=== PATIENT | female | born 1960 | race Caucasian/White ===

== ENCOUNTER 2017-05-26 16:36 | Observation (INO) | payer MEDICAID, MEDICARE, OTHER ==
[~2017-05-26] VITALS: Ht 157.5 cm; Wt 67.1 kg
[~2017-05-26 16:36] MED LIST: CORT1SOL LEFT EAR; FLUT50SP EACH NARE; LOSA50TA PO; MECL-62 PO; OMEP40CA2 PO; TRAM50TA PO; VENTAER INH; ZOFR4TAB PO
[2017-05-26 16:42] VITALS: BP 153/80; PULSE 76; RESP 16; TEMP 97.9; O2SAT 96
[2017-05-26] MEDS ORDERED: EPIP0.3I SQ (17:06)
[2017-05-26] MEDS ORDERED: ALBU0.63 NEB (17:06)
[2017-05-26] MEDS ORDERED: CYCL1TAB29 PO (17:06)
[2017-05-26] MEDS ORDERED: DICY20TA10 PO (17:06)
[2017-05-26 17:38] LABS: AUTOMATED NEUTROPHIL # 5.3 TH/MM3 (1.8-7.7); BASOPHIL # 0.3 TH/MM3 (0-0.2); BASOPHIL % 3.5 % (0.0-2.0); EOSINOPHIL # 0.1 TH/MM3 (0-0.4); EOSINOPHIL % 1.1 % (0.0-4.0); HEMATOCRIT 37.2 % (35.0-46.0); HEMO FLAGS DIFF FINAL; LYMPH % 20.6 % (9.0-44.0); LYMPHOCYTE # 1.7 TH/MM3 (1.0-4.8); MEAN CELL VOLUME 90.9 FL (80.0-100.0); MEAN CORPUSCULAR HEMOGLOBIN 30.9 PG (27.0-34.0); NEUT % 66.8 % (16.0-70.0); PLATELET COUNT 152 TH/MM3 (150-450); RED BLOOD COUNT 4.09 MIL/MM3 (4.00-5.30); RED CELL DISTRIBUTION WIDTH 12.7 % (11.6-17.2); WHITE BLOOD COUNT 8.1 TH/MM3 (4.0-11.0)
[2017-05-26 17:47] LABS: CHLORIDE 107 MEQ/L (98-107); POTASSIUM 3.7 MEQ/L (3.5-5.1); SODIUM (NA) 140 MEQ/L (136-145)
[2017-05-26 17:51] LABS: ANION GAP 9 MEQ/L (5-15); BICARBONATE 23.7 MEQ/L (21.0-32.0); BLOOD UREA NITROGEN 9 MG/DL (7-18)
[2017-05-26 17:52] LABS: PROTHROMBIN TIME - PATIENT 10.7 SEC (9.8-11.6)
--- NOTE | 2017-05-26 17:52 | RADRPT ---
EXAM DATE/TIME: 05/26/2017 17:35 [facility] COMPARISON: No previous studies available for comparison. INDICATIONS : Cephalgia, right eye vision loss and bilateral orbital swelling. RADIATION DOSE: 59.57 CTDIvol (mGy) MEDICAL HISTORY : Multple sclerosis. SURGICAL HISTORY : None. ENCOUNTER: Initial ACUITY: 2 weeks PAIN SCALE: 8/10 LOCATION: cranial TECHNIQUE: Multiple contiguous axial images were obtained of the head. Using automated exposure control and adj ustment of the mA and/or kV according to patient size, radiation dose was kept as low as reasonably a chievable to obtain optimal diagnostic quality images. DICOM format image data is available electro nically for review and comparison. FINDINGS: CEREBRUM: The ventricles are normal for age. No evidence of midline shift, mass lesion, hemorrhage or acute in farction. No extra-axial fluid collections are seen. POSTERIOR FOSSA: The cerebellum and brainstem are intact. The 4th ventricle is midline. The cerebellopontine angle i s unremarkable. EXTRACRANIAL: The visualized portion of the orbits is intact. SKULL: The calvaria is intact. No evidence of skull fracture. CONCLUSION: Negative for acute process. Sean Richard MD FACR on May 26, 2017 at 17:50 Board Certified Radiologist. This report was verified electronically.
[2017-05-26 17:54] LABS: ALT (GPT) 28 U/L (10-53); AST (GOT) 20 U/L (15-37); GLOMERULAR FILTRATION RATE 74 ML/MIN (>89)
[2017-05-26 17:55] LABS: TOTAL BILIRUBIN ADULT 0.4 MG/DL (0.2-1.0)
[2017-05-26 17:57] LABS: ALKALINE PHOSPHATASE 73 U/L (45-117)
[2017-05-26] MEDS ORDERED: ACETAMINOPHEN 325 MG TAB PO ONE ×2 (18:15→23:00)
[2017-05-26] MEDS ORDERED: DIAZEPAM 5 MG TAB PO ONE (18:15)
[2017-05-26] MEDS ORDERED: ASPIRIN 81 MG CHEW TAB CHEW ONE (18:30)
[2017-05-26] MEDS ORDERED: PROPARACAINE HCL 0.5% OPHT SOLN 15 ML BTL EACH EYE ONE (18:30)
--- NOTE | 2017-05-26 19:17 | PD ---
HPI Chief Complaint: Eye Problems/Injury Time Seen by Provider: 17:12 Travel History International Travel<30 days: No Contact w/Intl Traveler<30days: No Traveled to known affect area: No History of Present Illness HPI Patient is a 56 year old female who comes in complaining of pain in her head and intermittent blindness. She says that she has had issues with swelling around her eye for the past week. She was seen in urgent care and given a prescription for tobramycin drops for presumed infection. She says that is improved, but today she was having flashes of white blindness over her eyes. She says these last for about 20 minutes. The last one was about an hour and a half prior to arrival. She also complains of severe pain to the top of her head. She denies nausea or vomiting. She does have history of MS, but says that she has not had any issues with her for a while. She does not take any medications for it currently. She denies fever or chills. She does feel very worn out. 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) Cardiovascular Problems: Yes (MITRAL VALVE PROLAPSE) High Cholesterol: Yes (BORDERLINE) Chemotherapy: No Chest Pain: No Congestive Heart Failure: No COPD: Yes Cerebrovascular Accident: No Diminished Hearing: Yes (BL hearing aids) Endocrine: No Gastrointestinal Disorders: Yes (PERF BOWEL HX) GERD: Yes Genitourinary: Yes (ENDOMETRIOSIS) Hepatitis: No Hiatal Hernia: No Herniated Disk: Yes Hypertension: Yes Immune Disorder: Yes Implanted Vascular Access Dvce: Yes Musculoskeletal: Yes (R SHOULDER ROTARY CUP SX 12/21) Neurologic: Yes (MS) Psychiatric: Yes Reproductive: Yes (HX SEVERE ENDOMETRIOSIS, SCAR TISSUE REMOVAL) Respiratory: Yes Immunizations Current: Yes Radiation Therapy: No Seizures: No Thyroid Disease: No Ulcer: Yes ?: Not Menopausal: Yes : 3 Para: 2 Miscarriage: 1 Dilation and Curettage (D&C): Yes Tubal Ligation: Yes Past Surgical History Abdominal Surgery: Yes (COLONOSCOPY, ENDOSCOPY 03/29; BOWEL RESECTION ) AICD: No Appendectomy: Yes Body Medical Devices: BILATERAL BREAST AUGMENTATION 03/22 Cardiac Surgery: No Section: Yes Cholecystectomy: Yes Ear Surgery: No Endocrine Surgery: No Eye Surgery: No Genitourinary Surgery: Yes (HX BLADDER CLIPPED SEVERAL TIMES) Gynecologic Surgery: Yes (HX SEVERE ENDOMETRIOSIS, SCAR TISSUE REMOVAL) Hysterectomy: Yes Joint Replacement: No Neurologic Surgery: Yes (04/17/14 C3-4 ACDF) Oral Surgery: Yes (4 BRIDGES, CAPS, ROOT CANALS) Pacemaker: No Thoracic Surgery: Yes (BILATERAL BREAST AUGMENTATION 03/22) Other Surgery: Yes (04/17/14 C3-4 ACDF) Social History Alcohol Use: Yes (2-3 glasses wine 4-5 nights/week) Tobacco Use: No Substance Use: No Allergies-Medications (Allergen,Severity, Reaction): Coded Allergies: Influenza Virus Vaccines (Unverified Allergy, Severe, Anaphylaxis, ) Sulfa (Sulfonamide Antibiotics) (Unverified Allergy, Severe, DYSPNEA, BRADYCARDIA, 05/26/17) avocado (Unverified Allergy, Severe, Swelling, 05/26/17) corn (Unverified Allergy, Severe, Shortness of Breath, 05/26/17) erythromycin base (Unverified Allergy, Severe, Swelling, 05/26/17) kiwi (Unverified Allergy, Severe, Swelling, 05/26/17) methylprednisolone (Unverified Allergy, Severe, ANAPHYLAXIS, 05/26/17) shellfish derived (Unverified Allergy, Severe, DYSPNEA, MITRAL VALVE PROLAPSE, 05/26/17) sulfur dioxide (Unverified Allergy, Severe, Dizziness, 05/26/17) wheat (Unverified Allergy, Severe, Swelling, 05/26/17) oyster extract (Unverified Allergy, Intermediate, Anaphylaxis, 05/26/17) Fish Containing Products (Unverified Adverse Reaction, Severe, Swelling, 05/26/17) iodine (Unverified Adverse Reaction, Severe, Rash, 05/26/17) jaci (Unverified Adverse Reaction, Severe, Swelling, 05/26/17) monosodium glutamate (Unverified Adverse Reaction, Severe, Swelling, 05/26) potassium iodide (Unverified Adverse Reaction, Severe, Rash, 05/26/17) povidone-iodine (Unverified Adverse Reaction, Severe, Rash, 05/26/17) sodium iodide (Unverified Adverse Reaction, Severe, Rash, 05/26/17) sodium iodide (Unverified Adverse Reaction, Severe, Rash, 05/26/17) Uncoded Allergies: TEQUILA (Allergy, Intermediate, Shortness of Breath, 09/29/13) ALOE (Adverse Reaction, Severe, Rash, 09/29/13) PEPPERS (Adverse Reaction, Severe, STOMACH ISSUES, 09/29/13) POWDER GLOVES (Adverse Reaction, Severe, Rash, 09/29/13) Reported Meds & Prescriptions Reported Meds & Active Scripts Active Reported Albuterol Neb (Albuterol Sulfate) 0.63 Mg/3 Ml Neb 0.63 Mg NEB Q4HR NEB PRN Epipen 2-Robert Inj (Epinephrine) 0.3 Mg/0.3 Ml Pfpen 0.3 Mg SQ ONCE PRN Dicyclomine (Dicyclomine HCl) 20 Mg Tab 20 Mg PO QID PRN Flexeril (Cyclobenzaprine HCl) 10 Mg Tab 10 Mg PO TID PRN Tramadol (Tramadol HCl) 50 Mg Tab 50 Mg PO Q6H PRN Fluticasone Nasal [place] 50 Mcg/Act Naspr 50 Mcg EACH NARE BID 50 mcg/spray Omeprazole 40 Mg Cap 40 Mg PO DAILY Losartan (Losartan Potassium) 50 Mg Tab 50 Mg PO DAILY Ventolin Hfa 18 GM Inh (Albuterol Sulfate) 90 Mcg/Act Aer 2 Puff INH Q4-6H PRN Review of Systems Except as stated in HPI: all other systems reviewed are Neg General / Constitutional: No: Fever, Chills Eyes: Positive: Blindness, No: Pain HENT: Positive: Headaches, No: Lightheadedness Cardiovascular: No: Chest Pain or Discomfort Respiratory: No: Shortness of Breath Gastrointestinal: No: Nausea, Vomiting Genitourinary: No: Dysuria Musculoskeletal: No: Myalgias, Edema Skin: No Rash, No Change in Pigmentation Neurologic: Positive: Weakness, No: Dizziness Physical Exam Narrative GENERAL: Awake and alert, in no acute distress. SKIN: Focused skin assessment warm/dry. HEAD: Atraumatic. Normocephalic. EYES: Pupils equal and round and reactive. No scleral icterus. Extraocular movements intact. ENT: No nasal bleeding or discharge. Mucous membranes pink and moist. NECK: Trachea midline. No JVD. CARDIOVASCULAR: Regular rate and rhythm. No murmur appreciated. RESPIRATORY: No accessory muscle use. Clear to auscultation. Breath sounds equal bilaterally. GASTROINTESTINAL: Abdomen soft, non-tender, nondistended. MUSCULOSKELETAL: No obvious deformities. No clubbing. No cyanosis. No edema. NEUROLOGICAL: Awake and alert. No obvious cranial nerve deficits. Motor grossly within normal limits. Normal speech. PSYCHIATRIC: Appropriate mood and affect; insight and judgment normal. Data Data Last Documented VS Vital Signs Date Time Temp Pulse Resp B/P (MAP) Pulse Ox O2 Delivery O2 Flow Rate FiO2 05/26/17 16:42 97.9 76 16 153/80 (104) 96 Orders Orders Iv Access Insert/Monitor (05/26/17 17:21) Complete Blood Count With Diff (05/26/17 17:21) Comprehensive Metabolic Panel (05/26/17 17:21) Act Partial Throm Time (Ptt) (05/26/17 17:21) Prothrombin Time / Inr (Pt) (05/26/17 17:21) Ct Brain W/O Iv Contrast(Rout) (05/26/17 ) Mri Brain W&W/O Contrast (05/26/17 ) Acetaminophen (Tylenol) (05/26/17 18:15) Diazepam (Valium) (05/26/17 18:15) Westergren Sedimentation Rate (05/26/17 18:19) Drug Screen, Random Urine (05/26/17 18:19) Mra Carotids W Contrast (05/26/17 ) Consult Neurology (05/26/17 ) Aspirin Chew (Aspirin Chew) (05/26/17 18:30) Proparacaine 0.5% Opth Soln (Alcaine 0.5 (05/26/17 18:30) (Hub Use Only)Inp Phy Cons/Ref (05/26/17 ) Admit Order (Ed Use Only) (05/26/17 ) Mrv Brain W/O Contrast (05/26/17 ) Labs Laboratory Tests Test 05/26/17 17:30 05/26/17 18:40 White Blood Count 8.1 TH/MM3 Red Blood Count 4.09 MIL/MM3 Hemoglobin 12.6 GM/DL Hematocrit 37.2 % Mean Corpuscular Volume 90.9 FL Mean Corpuscular Hemoglobin 30.9 PG Mean Corpuscular Hemoglobin Concent 34.0 % Red Cell Distribution Width 12.7 % Platelet Count 152 TH/MM3 Mean Platelet Volume 9.3 FL Neutrophils (%) (Auto) 66.8 % Lymphocytes (%) (Auto) 20.6 % Monocytes (%) (Auto) 8.0 % Eosinophils (%) (Auto) 1.1 % Basophils (%) (Auto) 3.5 % Neutrophils # (Auto) 5.3 TH/MM3 Lymphocytes # (Auto) 1.7 TH/MM3 Monocytes # (Auto) 0.7 TH/MM3 Eosinophils # (Auto) 0.1 TH/MM3 Basophils # (Auto) 0.3 TH/MM3 CBC Comment DIFF FINAL Differential Comment Erythrocyte Sedimentation Rate 5 mm/hr Prothrombin Time 10.7 SEC Prothromb Time International Ratio 1.0 RATIO Activated Partial Thromboplast Time 25.0 SEC Blood Urea Nitrogen 9 MG/DL Creatinine 0.80 MG/DL Random Glucose 107 MG/DL Total Protein 7.2 GM/DL Albumin 4.0 GM/DL Calcium Level 8.4 MG/DL Alkaline Phosphatase 73 U/L Aspartate Amino Transf (AST/SGOT) 20 U/L Alanine Aminotransferase (ALT/SGPT) 28 U/L Total Bilirubin 0.4 MG/DL Sodium Level 140 MEQ/L Potassium Level 3.7 MEQ/L Chloride Level 107 MEQ/L Carbon Dioxide Level 23.7 MEQ/L Anion Gap 9 MEQ/L Estimat Glomerular Filtration Rate 74 ML/MIN Urine Opiates Screen NEG Urine Barbiturates Screen NEG Urine Amphetamines Screen NEG Urine Benzodiazepines Screen NEG Urine Cocaine Screen NEG Urine Cannabinoids Screen NEG MDM Medical Decision Making Medical Screen Exam Complete: Yes Emergency Medical Condition: Yes Medical Record Reviewed: Yes Differential Diagnosis CVA versus cavernous sinus thrombosis versus electrolyte abnormality versus MS flare Narrative Course Patient is a 56-year-old female comes in complaining of intermittent blindness. Exam shows no acute abnormalities. Vision is 20/20 in 20/25. Pressure is 7 in the right eyes and 4 in the left eye. IV status, labs sent. CT brain performed shows no acute abnormalities. Dr. Cooper of neurology who suggests MRI and MRV MRA. These were ordered. He also suggests an aspirin, which is also given to the patient. He suggests admission for further workup. She will be given Tylenol and Valium for her headache as well as for issues with the anxiety and MRI. Diagnosis Primary Impression: Neurological symptoms Additional Impression: Blindness Admitting Information Admitting Physician Requests: Admit Condition: Stable Cari Carty MD May 26, 2017 19:17
[2017-05-26 19:24] VITALS: BP 149/92; PULSE 58; RESP 14; O2SAT 97
[2017-05-26] MEDS ORDERED: GADODIAMIDE PF 287 MG/ML 20 ML VIAL (for RAD MRI) IVCONTRAST ONE (19:24)
[2017-05-26 20:00] VITALS: BP 154/80; PULSE 65; RESP 20; TEMP 96.5; O2SAT 96
[2017-05-26 20:13] VITALS: BP 154/80; PULSE 65; RESP 20; TEMP 96.5; O2SAT 96
[2017-05-26] MEDS ORDERED: NALOXONE HCL 0.4 MG/ML AMP IV PUSH PRN (20:15)
[2017-05-26] MEDS ORDERED: SODIUM CHLORIDE 0.9% FLUSH 10 ML FLUSH IV FLUSH PRN (20:15)
--- NOTE | 2017-05-26 21:07 | RADRPT ---
EXAM DATE/TIME: 05/26/2017 20:20 [facility] COMPARISON: No previous studies available for comparison. INDICATIONS : Right eye vision loss. CONTRAST: 20 cc Omniscan (gadodiamide) IV MEDICAL HISTORY : Multiple sclerosis. Chronic obstructive pulmonary disease. Arthritis. SURGICAL HISTORY : Tubal ligation. Fusion, cervical. Fusion, lumbar. ENCOUNTER: Initial ACUITY: 2 weeks PAIN SCORE: 2/10 LOCATION: cranial TECHNIQUE: Multiplanar, multisequence MRI of the brain was performed both prior to and following the administrat ion of paramagnetic contrast. FINDINGS: CEREBRUM: The ventricles are normal for age. No evidence of midline shift, mass lesion, hemorrhage or acute in farction. No extraaxial fluid collections are seen. The pituitary gland and suprasellar cistern are normal in configuration. WHITE MATTER: Several tiny high signal spots are noted in the white matter tracts bilaterally. POSTERIOR FOSSA: The cerebellum and brainstem are intact. The 4th ventricle is midline. The cerebellopontine angle is unremarkable. The cerebellar tonsils are normal in position. DIFFUSION IMAGING: No focal areas of restricted diffusion are seen. No evidence of acute infarction. EXTRACRANIAL: The visualized portions of the orbits and paranasal sinuses are unremarkable. POST-CONTRAST: No abnormal areas of parenchymal or dural enhancement. No evidence of blood-brain barrier breakdown. CONCLUSION: 1. Several high signal spots are noted in the white matter tracts bilaterally. This can be seen with ischemic demyelinization. However, any demyelinating process can present with this finding. Therefore , this needs to be correlated with patient's physical and clinical exam if MS is a consideration. A f ollow up MRI of the brain could be performed in 6 months to check stability. Mike Moran MD on May 26, 2017 at 21:02 Board Certified Radiologist. This report was verified electronically.
--- NOTE | 2017-05-26 21:08 | RADRPT ---
EXAM DATE/TIME: 05/26/2017 20:20 [facility] COMPARISON: No previous studies available for comparison. INDICATIONS : Vision loss right eye. MEDICAL HISTORY : Arthritis. Chronic obstructive pulmonary disease. Multiple sclerosis. SURGICAL HISTORY : Fusion, lumbar. Fusion, cervical. ENCOUNTER: Initial ACUITY: 2 weeks PAIN SCORE: 2/10 LOCATION: cranial Please note a normal MRA of the brain does not entirely exclude the possibility of a small aneurysm, nor the possibility of distal intracranial vessel disease. TECHNIQUE: MR venography of the brain was performed without contrast with multiplanar and 3D reconstructions. FINDINGS: There is good visualization of the venous system. There is no evidence of thrombus or obstruction. CONCLUSION: Unremarkable exam. Mike Moran MD on May 26, 2017 at 21:06 Board Certified Radiologist. This report was verified electronically.
[2017-05-26 21:09] VITALS: BP 150/86; TEMP 97.8
--- NOTE | 2017-05-26 21:16 | RADRPT ---
EXAM DATE/TIME: 05/26/2017 20:20 [facility] COMPARISON: No previous studies available for comparison. INDICATIONS : Right eye vision loss. CONTRAST: 20 cc Omniscan (gadodiamide) IV MEDICAL HISTORY : Chronic obstructive pulmonary disease. Multiple sclerosis. Arthritis. SURGICAL HISTORY : Tubal ligation. Discectomy, cervical. Discectomy, lumbar. ENCOUNTER: Initial ACUITY: 2 weeks PAIN SCORE: 2/10 LOCATION: cranial Percent stenosis is calculated using the diameter of the stenotic region over the diameter of the nor mal distal internal carotid artery. TECHNIQUE: Bolus infused MRA of the extracranial circulation was performed using a neurovascular coil. Post pro cessing was performed including rotating subvolume maximum intensity projections of each carotid love ry, rotating full volume maximum intensity projections of both carotid arteries, sagittal and coronal sliding thin slab reformations of each carotid artery, and left oblique sliding thin slab reformatio n through the aortic arch to include the origin of the arch branch vessels. FINDINGS: AORTIC ARCH: There is a three vessel origin of the great vessels from the aorta. No evidence of ostial narrowing. RIGHT CAROTID: The common carotid artery is intact. The carotid bulb has a normal configuration without ulceration or narrowing. The internal carotid artery lumen is smooth without stenosis. The external carotid ar carrie is intact. There is tortuosity of the internal carotid artery. LEFT CAROTID: The common carotid artery is intact. The carotid bulb has a normal configuration without ulceration or narrowing. The internal carotid artery lumen is smooth without stenosis. The external carotid ar carrie is intact. There is tortuosity of the internal carotid artery. VERTEBRALS: There is a left dominant vertebral artery. There is a small patent right vertebral artery. CONCLUSION: 1. There is tortuosity of both internal carotid arteries. 2. Otherwise, unremarkable exam for patient's age. Mike Moran MD on May 26, 2017 at 21:13 Board Certified Radiologist. This report was verified electronically.
[2017-05-26 21:40] VITALS: PULSE 54
[2017-05-26] MEDS: SODIUM CHLORIDE 0.9% FLUSH 10 ML FLUSH IV FLUSH SCH (23:41)
[2017-05-27] VITALS (12 sets, daily range): BP systolic 126–193; BP diastolic 80–99; PULSE 53–88; RESP 18–24; TEMP 96.5–98.9; O2SAT 94–98
[2017-05-27 06:21] LABS: AUTOMATED NEUTROPHIL # 2.6 TH/MM3 (1.8-7.7); BASOPHIL # 0.1 TH/MM3 (0-0.2); BASOPHIL % 1.3 % (0.0-2.0); EOSINOPHIL # 0.1 TH/MM3 (0-0.4); EOSINOPHIL % 1.9 % (0.0-4.0); HEMO FLAGS DIFF FINAL; LYMPH % 37.6 % (9.0-44.0); LYMPHOCYTE # 1.9 TH/MM3 (1.0-4.8); MEAN CORPUSCULAR HEMOGLOBIN 30.8 PG (27.0-34.0); MEAN CORPUSCULAR HGB CONC 33.5 % (32.0-36.0); NEUT % 51.2 % (16.0-70.0); PLATELET COUNT 138 TH/MM3 (150-450); RED BLOOD COUNT 4.03 MIL/MM3 (4.00-5.30); WHITE BLOOD COUNT 5.1 TH/MM3 (4.0-11.0)
[2017-05-27 06:34] LABS: POTASSIUM 3.5 MEQ/L (3.5-5.1)
[2017-05-27] MEDS: SODIUM CHLORIDE 0.9% FLUSH 10 ML FLUSH IV FLUSH SCH ×2 (09:30→20:56)
[2017-05-27] MEDS ORDERED: predniSONE 20 MG TAB PO ONE (11:30)
--- NOTE | 2017-05-27 11:35 | HHI.HP ---
[facility] Primary Care Physician Non-Staff Admission Diagnosis episodic blindness, neurologic symptoms Diagnoses: Travel History International Travel<30 Days: No Contact w/Intl Traveler <30 Da: No Traveled to Known Affected Are: No History of Present Illness Mrs. Spain is a 56 year-old female. She has a history of multiple sclerosis. Recently she's had an exacerbation. She may have also had angioedema. She describes a right-sided headache and recurrent episodes of facial swelling more specifically around her orbits which of inhibited her ability to see. She's had this recently. She had been recovering and noticed statistically different change in her ability to see yesterday which prompted her to come into the emergency department. This episode of transient blindness was not related to eye swelling/mechanical obstruction. MRI of the brain shows areas of demyelinization, which are consistent with her multiple sclerosis but determination of an acute CVA in the setting of his difficult. Her vision has returned to his baseline status at this point. Overall she still has malaise. She has been on losartan which could be a cause of her angioedema. However, she also has sclerosis and autoimmunity could affect an episode of angioedema also. No other complaints when seen. No reports of unilateral weakness. She follows in outpatient with Dr. Workman is a neurologist. Review of Systems Constitutional: DENIES: Fatigue, Fever, Dizziness Eyes: COMPLAINS OF: Blurred vision, Vision loss Ears, nose, mouth, throat: DENIES: Tinnitus, Hearing loss, Vertigo Respiratory: DENIES: Apneas, Cough, Wheezing Cardiovascular: DENIES: Chest pain, Palpitations, Syncope Gastrointestinal: DENIES: Abdominal pain, Black stools, Bloody stools Musculoskeletal: DENIES: Joint pain, Muscle aches, Stiffness Integumentary: DENIES: Abnormal pigmentation, Pruritus, Rash, Nail changes Hematologic/lymphatic: DENIES: Bruising, Lymphadenopathy Immunologic/allergic: DENIES: Eczema, Urticaria Neurologic: COMPLAINS OF: Headache, DENIES: Abnormal gait, Localized weakness, Paresthesias Psychiatric: DENIES: Anxiety, Confusion, Hallucinations Past Family Social History Past Medical History Past Medical History Multiple history of gastroenteritis Asthma, COPD Multiple sclerosis? Arthritis Mitral valve prolapse Breast tumors with cysts Dyslipidemia Herniated disc Endometriosis Past Surgical History Past Surgical History Colonoscopy Cholecystectomy Hysterectomy Bowel resection Breast augmentation section Cholecystectomy Appendectomy Urinary bladder clipping Reported Medications Reported Meds & Active Scripts Active Reported Albuterol Neb (Albuterol Sulfate) 0.63 Mg/3 Ml Neb 0.63 Mg NEB Q4HR NEB PRN Epipen 2-Robert Inj (Epinephrine) 0.3 Mg/0.3 Ml Pfpen 0.3 Mg SQ ONCE PRN Dicyclomine (Dicyclomine HCl) 20 Mg Tab 20 Mg PO QID PRN Flexeril (Cyclobenzaprine HCl) 10 Mg Tab 10 Mg PO TID PRN Tramadol (Tramadol HCl) 50 Mg Tab 50 Mg PO Q6H PRN Fluticasone Nasal [place] 50 Mcg/Act Naspr 50 Mcg EACH NARE BID 50 mcg/spray Omeprazole 40 Mg Cap 40 Mg PO DAILY Losartan (Losartan Potassium) 50 Mg Tab 50 Mg PO DAILY Ventolin Hfa 18 GM Inh (Albuterol Sulfate) 90 Mcg/Act Aer 2 Puff INH Q4-6H PRN Allergies: Coded Allergies: Influenza Virus Vaccines (Unverified Allergy, Severe, Anaphylaxis, ) Sulfa (Sulfonamide Antibiotics) (Unverified Allergy, Severe, DYSPNEA, BRADYCARDIA, 05/26/17) avocado (Unverified Allergy, Severe, Swelling, 05/26/17) corn (Unverified Allergy, Severe, Shortness of Breath, 05/26/17) erythromycin base (Unverified Allergy, Severe, Swelling, 05/26/17) kiwi (Unverified Allergy, Severe, Swelling, 05/26/17) methylprednisolone (Unverified Allergy, Severe, ANAPHYLAXIS, 05/26/17) shellfish derived (Unverified Allergy, Severe, DYSPNEA, MITRAL VALVE PROLAPSE, 05/26/17) sulfur dioxide (Unverified Allergy, Severe, Dizziness, 05/26/17) wheat (Unverified Allergy, Severe, Swelling, 05/26/17) oyster extract (Unverified Allergy, Intermediate, Anaphylaxis, 05/26/17) Fish Containing Products (Unverified Adverse Reaction, Severe, Swelling, 05/26/17) iodine (Unverified Adverse Reaction, Severe, Rash, 05/26/17) jaci (Unverified Adverse Reaction, Severe, Swelling, 05/26/17) monosodium glutamate (Unverified Adverse Reaction, Severe, Swelling, 05/26) potassium iodide (Unverified Adverse Reaction, Severe, Rash, 05/26/17) povidone-iodine (Unverified Adverse Reaction, Severe, Rash, 05/26/17) sodium iodide (Unverified Adverse Reaction, Severe, Rash, 05/26/17) sodium iodide (Unverified Adverse Reaction, Severe, Rash, 05/26/17) Uncoded Allergies: TEQUILA (Allergy, Intermediate, Shortness of Breath, 09/29/13) ALOE (Adverse Reaction, Severe, Rash, 09/29/13) PEPPERS (Adverse Reaction, Severe, STOMACH ISSUES, 09/29/13) POWDER GLOVES (Adverse Reaction, Severe, Rash, 09/29/13) Active Ordered Medications Administered Medications Medications (Trade) Dose Ordered Sig/Michael Route PRN Reason Start Time Stop Time Status Last Admin Dose Admin Sodium Chloride (NS Flush) 2 ml BID IV FLUSH 05/26/17 21:00 05/27/17 09:30 Family History Stomach cancer and family Social History Past history of smoking, quit 10 years ago Occasional alcohol use No illicit drug abuse Physical Exam Vital Signs Vital Signs Date Time Temp Pulse Resp B/P (MAP) Pulse Ox O2 Delivery O2 Flow Rate FiO2 05/27/17 08:13 96.7 59 20 139/81 (100) 98 05/27/17 08:00 53 05/27/17 07:50 96.7 59 20 139/81 (100) 98 05/27/17 04:00 96.7 60 18 126/82 (97) 98 05/27/17 00:13 96.5 60 20 133/80 (97) 98 05/27/17 00:00 96.5 60 20 133/80 (97) 98 05/26/17 21:40 54 05/26/17 21:09 97.8 56 16 150/86 (107) 97 05/26/17 20:13 96.5 65 20 154/80 (104) 96 05/26/17 20:00 96.5 65 20 154/80 (104) 96 05/26/17 19:25 14 05/26/17 19:24 58 14 149/92 (111) 97 Room Air 05/26/17 16:42 97.9 76 16 153/80 (104) 96 Physical Exam GENERAL: NAD, A&Ox3 HEAD: Normocephalic. Recovering facial swelling. NECK: Supple, trachea midline. No lymphadenopathy. EYES: No scleral icterus. No injection or drainage. No signs of swelling of the eye itself. CARDIOVASCULAR: Regular rate and rhythm without murmurs, gallops, or rubs. RESPIRATORY: Breath sounds equal bilaterally. No accessory muscle use. GASTROINTESTINAL: Abdomen soft, non-tender, nondistended. MUSCULOSKELETAL: No cyanosis, or edema. SKIN: Warm and dry. NEURO: No focal neurological deficitis. Laboratory Laboratory Tests Test 05/26/17 17:30 05/26/17 18:40 05/27/17 04:40 White Blood Count 8.1 5.1 Red Blood Count 4.09 4.03 Hemoglobin 12.6 12.4 Hematocrit 37.2 37.0 Mean Corpuscular Volume 90.9 92.0 Mean Corpuscular Hemoglobin 30.9 30.8 Mean Corpuscular Hemoglobin Concent 34.0 33.5 Red Cell Distribution Width 12.7 13.0 Platelet Count 152 138 Mean Platelet Volume 9.3 9.9 Neutrophils (%) (Auto) 66.8 51.2 Lymphocytes (%) (Auto) 20.6 37.6 Monocytes (%) (Auto) 8.0 8.0 Eosinophils (%) (Auto) 1.1 1.9 Basophils (%) (Auto) 3.5 1.3 Neutrophils # (Auto) 5.3 2.6 Lymphocytes # (Auto) 1.7 1.9 Monocytes # (Auto) 0.7 0.4 Eosinophils # (Auto) 0.1 0.1 Basophils # (Auto) 0.3 0.1 CBC Comment DIFF FINAL DIFF FINAL Differential Comment Erythrocyte Sedimentation Rate 5 Prothrombin Time 10.7 Prothromb Time International Ratio 1.0 Activated Partial Thromboplast Time 25.0 Blood Urea Nitrogen 9 8 Creatinine 0.80 0.62 Random Glucose 107 96 Total Protein 7.2 Albumin 4.0 Calcium Level 8.4 8.2 Alkaline Phosphatase 73 Aspartate Amino Transf (AST/SGOT) 20 Alanine Aminotransferase (ALT/SGPT) 28 Total Bilirubin 0.4 Sodium Level 140 141 Potassium Level 3.7 3.5 Chloride Level 107 108 Carbon Dioxide Level 23.7 26.0 Anion Gap 9 7 Estimat Glomerular Filtration Rate 74 99 Urine Opiates Screen NEG Urine Barbiturates Screen NEG Urine Amphetamines Screen NEG Urine Benzodiazepines Screen NEG Urine Cocaine Screen NEG Urine Cannabinoids Screen NEG Result Diagram: 05/27/1743905/27/17439 Caprini VTE Risk Assessment Caprini VTE Risk Assessment: No/Low Risk (score <= 1) Caprini Risk Assessment Model Point Value = 1 Point Value = 2 Point Value = 3 Point Value = 5 Age 41-60 Minor surgery BMI > 25 kg/m2 Swollen legs Varicose veins or History of unexplained or recurrent spontaneous Oral contraceptives or hormone replacement Sepsis (< 1 month) Serious lung disease, including pneumonia (< 1 month) Abnormal pulmonary function Acute myocardial infarction Congestive heart failure (< 1 month) History of inflammatory bowel disease Medical patient at bed rest Age 61-74 Arthroscopic surgery Major open surgery (> 45 min) Laparoscopic surgery (> 45 min) Malignancy Confined to bed (> 72 hours) Immobilizing plaster cast Central venous access Age >= 75 History of VTE Family history of VTE Factor V Leiden Prothrombin [id number] Lupus anticoagulant Anticardiolipin antibodies Elevated serum homocysteine Heparin-induced thrombocytopenia Other congenital or acquired thrombophilia Stroke (< 1 month) Elective arthroplasty Hip, pelvis, or leg fracture Acute spinal cord injury (< 1 month) Prophylaxis Regimen Total Risk Factor Score Risk Level Prophylaxis Regimen 0-1 Low Early ambulation 2 Moderate Order ONE of the following: *Sequential Compression Device (SCD) *Heparin 5000 units SQ BID 3-4 Higher Order ONE of the following medications: *Heparin 5000 units SQ TID *Enoxaparin/Lovenox 40 mg SQ daily (WT < 150 kg, CrCl > 30 mL/min) *Enoxaparin/Lovenox 30 mg SQ daily (WT < 150 kg, CrCl > 10-29 mL/min) *Enoxaparin/Lovenox 30 mg SQ BID (WT < 150 kg, CrCl > 30 mL/min) AND/OR *Sequential Compression Device (SCD) 5 or more Highest Order ONE of the following medications: *Heparin 5000 units SQ TID (Preferred with Epidurals) *Enoxaparin/Lovenox 40 mg SQ daily (WT < 150 kg, CrCl > 30 mL/min) *Enoxaparin/Lovenox 30 mg SQ daily (WT < 150 kg, CrCl > 10-29 mL/min) *Enoxaparin/Lovenox 30 mg SQ BID (WT < 150 kg, CrCl > 30 mL/min) AND *Sequential Compression Device (SCD) Assessment and Plan Problem List: (1) Multiple sclerosis ICD Code: G35 - Multiple sclerosis (2) Blindness ICD Code: H54.7 - Unspecified visual loss Status: Acute (3) Neurological symptoms ICD Code: R29.90 - Unspecified symptoms and signs involving the nervous system Status: Acute Assessment and Plan Assessment and plan 56-year-old female admitted secondary to acute transient blindness Acute blindness Now resolved Etiology may be related to multiple sclerosis versus CVA versus swelling MRI of brain is completed and does not help differentiate at this point between multiple sclerosis or CVA Neurology has been consulted Steroids started to cover for MS flareup etiology Angioedema Improving Steroids provided Monitor clinically Discontinue losartan Asthma, COPD Stable Follow clinically Dyslipidemia Follows in outpatient DVT prophylaxis SCDs Ghassan Chapman MD May 27, 2017 11:35
[2017-05-27 14:29] LABS: CREATINE KINASE 63 U/L (26-192)
--- NOTE | 2017-05-27 15:05 | EKG ---
Date Performed: 05/27/2017 Time Performed: 13:35:27 PTAGE: 56 years EKG: Sinus rhythm NORMAL ECG NO PREVIOUS TRACING DOCTOR: Oseas Mclean Interpretating Date/Time 05/27/2017 15:03:38
[2017-05-27] MEDS: predniSONE 20 MG TAB PO SCH (20:56)
[2017-05-27] MEDS: ACETAMINOPHEN 325 MG TAB PO PRN (20:58)
--- NOTE | 2017-05-27 21:27 | RADRPT ---
EXAM DATE/TIME: 05/27/2017 21:08 [facility] COMPARISON: CHEST SINGLE AP, June 14, 2015, 17:06. INDICATIONS : Left chest pain since this morning. Short of breath. MEDICAL HISTORY : Multiple sclerosis. Chronic obstructive pulmonary disease. Arthritis SURGICAL HISTORY : Tubal ligation. Fusion, cervical. Fusion, lumbar ENCOUNTER: Initial ACUITY: 1 day PAIN SCORE: 10/10 LOCATION: Left chest FINDINGS: A single view of the chest demonstrates the lungs to be symmetrically aerated without evidence of mas s, infiltrate or effusion. The cardiomediastinal contours are unremarkable. Osseous structures are intact. CONCLUSION: 1. No active disease. Tortuous aorta. Tesfaye Dove MD on May 27, 2017 at 21:26 Board Certified Radiologist. This report was verified electronically.
--- NOTE | 2017-05-27 21:47 | MB ---
cc: GARLAND MCBRIDE M.D. DATE OF CONSULTATION 05/27/17 REASON FOR CONSULTATION History of multiple sclerosis with new visual change. HISTORY OF PRESENT ILLNESS Ms. Stephens is a 56-year-old woman who has multiple sclerosis. She began to develop swelling of the eyes, head and neck. Several days ago she had difficulty seeing off to the right side and also to the left side as well, developed as well unsteadiness of gait which lasted a day or so then resolved. PERSONAL HISTORY She has a history of multiple sclerosis, mitral valve prolapse, COPD, asthma, gastroenteritis, dyslipidemia, endometriosis, herniated disc, breast tumor, cholecystectomy, colonoscopy, hysterectomy, bowel resection, breast augmentation, surgical appendectomy. MEDICATIONS At home: 1. Albuterol. 2. EpiPen. 3. Diclofenac. 4. Flexeril. 5. Tramadol. 6. Fluticasone. 7. Omeprazole. 8. Losartan. 9. Ventolin. ALLERGIES ALLERGIES TO INFLUENZA, SULFA, AVOCADO, CORN, ERYTHROMYCIN, KIWI, METHYLPREDNISOLONE, SHELLFISH, SULFA DIOXIDE, WHEAT, OYSTER EXTRACT, FISH, IODINE, JOHN, MONOSODIUM GLUTAMATE, POTASSIUM IODIDE, POVIDONE IODIDE, SODIUM IODIDE. NEUROLOGIC EXAMINATION VITAL SIGNS: Blood pressure 161/99, pulse 68, respiratory rate is 18. NEURO: Higher cortical functions normal. Cranial nerves visual rachel are normal to confrontation. Pupils equal, reactive. On motor exam she has 5/5 strength of all groups in both upper and lower extremities. There is no drift. IMAGING STUDIES MRI of the brain shows several areas of demyelinization consistent with multiple sclerosis. There is no abnormal enhancement. MRA of the neck is unremarkable with no evidence of any significant stenosis. Head MRV is normal. LABORATORY DATA White count is 5,100, hemoglobin is 12.4, hematocrit is 37%, sed rate is 5. Sodium is 141, potassium 3.5, chloride 108, CO2 26, the BUN is 8, creatinine 0.62, PT 10.7, INR 1, APTT 42. IMPRESSION 1. MS, overall stable. 2. Transient bilateral visual loss with ataxia, suggest this may be a vertebrobasilar TIA. I doubt this is a MS exacerbation. RECOMMENDATIONS Start aspirin 325 milligrams daily. I would like to get an MRA of the brain to be sure there is no basilar artery stenosis. Will obtain a lipid panel as well as an echocardiogram to rule out cardiogenic embolic source. Monitor cardiac telemetry to rule out a-fib. MD JOSE DAVID Doshi/DAVID /9:17 PM /9:25 PM
[2017-05-27] MEDS ORDERED: traMADol HCL 50 MG TAB PO ONE (22:30)
[2017-05-28] VITALS (8 sets, daily range): BP systolic 133–170; BP diastolic 72–100; PULSE 64–83; RESP 16–20; TEMP 96.2–98; O2SAT 93–98
[2017-05-28 00:24] LABS: HDL CHOLESTEROL 80.4 MG/DL (40.0-60.0)
[2017-05-28] MEDS: ASPIRIN EC 325 MG TABEC PO SCH (08:59)
[2017-05-28] MEDS: predniSONE 20 MG TAB PO SCH ×2 (08:59→20:13)
[2017-05-28] MEDS: ACETAMINOPHEN 325 MG TAB PO PRN ×3 (09:00→21:13)
[2017-05-28] MEDS: SODIUM CHLORIDE 0.9% FLUSH 10 ML FLUSH IV FLUSH SCH ×2 (09:00→20:14)
[2017-05-28] MEDS ORDERED: MAGNESIUM HYDROXIDE SUSP 30 ML CUP PO PRN (09:30)
[2017-05-28] MEDS ORDERED: DOCUSATE SODIUM 100 MG CAP PO PRN (09:30)
[2017-05-28] MEDS ORDERED: DIAZEPAM 5 MG TAB PO ONE (09:30)
[2017-05-28] MEDS: ALUMINUM/MAGNESIUM/SIMETH 30 ML CUP PO PRN ×2 (10:31→20:13)
--- NOTE | 2017-05-28 12:26 | HHI.PR ---
Subjective Remarks Stable, vision is back to normal, no headache no acute issues overnight She discussed with the neurologist, he think more of a TIA Objective Vitals Vital Signs Date Time Temp Pulse Resp B/P (MAP) Pulse Ox O2 Delivery O2 Flow Rate FiO2 05/28/17 10:00 16 05/28/17 08:13 97.3 83 16 158/100 (119) 95 05/28/17 08:10 151/88 (109) 05/28/17 08:00 71 05/28/17 08:00 97.3 83 16 158/100 (119) 95 05/28/17 04:00 97.2 64 18 166/72 (103) 98 05/27/17 23:55 96.8 69 21 193/99 (130) 94 05/27/17 20:00 66 05/27/17 20:00 97.1 68 18 161/99 (119) 97 05/27/17 16:13 97.2 66 18 149/97 (114) 94 05/27/17 15:00 67 05/27/17 12:30 88 05/27/17 12:30 98.9 79 24 136/94 (108) 98 I/O 05/27/17 05/27/17 05/27/17 05/28/17 05/28/17 05/28/17 07:00 15:00 23:00 07:00 15:00 23:00 Intake Total 660 ml 400 ml 350 ml Balance 660 ml 400 ml 350 ml Intake Oral 660 ml 400 ml 350 ml # Voids 5 2 2 # Bowel Movements 1 1 Result Diagram: 05/27/1743905/27/17439 Objective Remarks GENERAL: This is a well-nourished, well-developed patient, in no apparent distress. SKIN: No rashes, warm and dry HEAD: Atraumatic. Normocephalic. EYES: Pupils equal round and reactive. Extraocular motions intact. No scleral icterus. ENT: Nose without bleeding, or drainage, Airway patent. NECK: Trachea midline. Supple CARDIOVASCULAR: Regular rate and rhythm without murmurs, gallops, or rubs. RESPIRATORY: Fair air entry bilaterally. No wheezes, rales, or rhonchi. GASTROINTESTINAL: Abdomen soft, non-tender, nondistended. Positive bowel sounds MUSCULOSKELETAL: Extremities without clubbing, cyanosis, or edema. Pedal pulses appreciated NEUROLOGICAL: Awake and alert. Moves all extremity. Normal speech.no focal neurological deficit A/P Problem List: (1) Multiple sclerosis ICD Code: G35 - Multiple sclerosis (2) Blindness ICD Code: H54.7 - Unspecified visual loss Status: Acute (3) Neurological symptoms ICD Code: R29.90 - Unspecified symptoms and signs involving the nervous system Status: Acute Assessment and Plan Acute blindness Angioedema Asthma Dyslipidemia DVT prophylaxis Plan: Appreciate neurology consultation Possibly TIA, unlikely related to MS CT neck, MRI/MRA of the brain reviewed will follow neurology recommendation Continue steroid Iwona More MD May 28, 2017 12:26
--- NOTE | 2017-05-28 13:23 | RADRPT ---
EXAM DATE/TIME: 05/28/2017 13:05 [facility] COMPARISON: No previous studies available for comparison. INDICATIONS : Stenosis. MEDICAL HISTORY : Rheumatoid arthritis. Chronic obstructive pulmonary disease. SURGICAL HISTORY : Fusion, lumbar. Discectomy, cervical. Appendectomy. Hysterectomy, cholecystectomy. ENCOUNTER: Initial ACUITY: 2 day PAIN SCORE: 0/10 LOCATION: cranial Please note a normal MRA of the brain does not entirely exclude the possibility of a small aneurysm, nor the possibility of distal intracranial vessel disease. TECHNIQUE: 3D time of flight MRA was performed. Source images, multiplanar STS MIP, and 3D volume MIP reconstru ctions were reviewed. FINDINGS: There is excellent visualization of the major intracranial arteries out to the second-order branch ve ssels. There is no evidence for aneurysm, vessel truncation or stenosis, and no evidence for vascula r malformation. CONCLUSION: Negative for stenosis. Right vertex small and diminutive Right posterior cerebral artery arising from anterior circulation, normal variant Sean Richard MD FACR on May 28, 2017 at 13:21 Board Certified Radiologist. This report was verified electronically.
--- NOTE | 2017-05-28 19:54 | ECHRPT ---
Indication: cva/tia CONCLUSIONS The left ventricular systolic function is normal with an estimated ejection fraction in the range of 55-60%. Left ventricular diastolic function parameters are normal. Mild mitral valve regurgitation. There is trace tricuspid valve regurgitation. BP: / HR: Rhythm: MEASUREMENTS (Male / Female) Normal Values Technical Quality:Technically difficult study 2D ECHO LV Diastolic Diameter PLAX 4.0 cm 4.2 - 5.9 / 3.9 - 5.3 cm LV Systolic Diameter PLAX 2.8 cm IVS Diastolic Thickness 1.0 cm 0.6 - 1.0 / 0.6 - 0.9 cm LVPW Diastolic Thickness 0.9 cm 0.6 - 1.0 / 0.6 - 0.9 cm LV Relative Wall Thickness 0.5 RV Internal Dim ED PLAX 3.2 cm M-MODE Aortic Root Diameter MM 2.8 cm LA Systolic Diameter MM 3.2 cm LA Ao Ratio MM 1.1 AV Cusp Separation MM 1.8 cm DOPPLER Mitral E Point Velocity 90.3 cm/s Mitral A Point Velocity 104.0 cm/s Mitral E to A Ratio 0.9 LV E' Lateral Velocity 9.1 cm/s Mitral E to LV E' Lateral Ratio 10.0 LV E' Septal Velocity 12.4 cm/s Mitral E to LV E' Septal Ratio 7.3 FINDINGS LEFT VENTRICLE The left ventricular systolic function is normal with an estimated ejection fraction in the range of 55-60%. Normal left ventricular size. No regional wall motion abnormalities are present. Left ventricular diastolic function parameters are normal. RIGHT VENTRICLE Normal right ventricular size and systolic function. LEFT ATRIUM The left atrial size is normal. RIGHT ATRIUM The right atrial size is normal. ATRIAL SEPTUM Normal atrial septal thickness. AORTA The aortic root and proximal ascending aorta are normal in size on limited imaging. MITRAL VALVE Structurally normal mitral valve. Mild mitral valve regurgitation. No mitral valve stenosis. AORTIC VALVE Trileaflet aortic valve. No aortic valve stenosis or regurgitation. TRICUSPID VALVE Structurally normal tricuspid valve. There is trace tricuspid valve regurgitation. No tricuspid valve stenosis. PULMONARY VALVE The pulmonary valve is not well visualized. VESSELS The inferior vena cava is normal in size. PERICARDIUM No pericardial effusion. Dallin Padilla DO (Electronically Signed) Final Date:28 May 2017 19:54
--- NOTE | 2017-05-28 20:46 | HHI.PR ---
Review/Management Diagnosis TIA---stable MS--stable Plan add statin for elevated LDL, continue asa 325 mg daily Ok from neurology standpoint to discharge in AM--f/u with me in 2 weeks Diagnosis/Plan: Subjective Subjective Comments No acute events reported Active Medications Current Medications Medications (Trade) Dose Ordered Sig/Michael Route Start Time Stop Time Status Last Admin (NS Flush) 2 ml UNSCH PRN IV FLUSH 05/26/17 20:15 (NS Flush) 2 ml BID IV FLUSH 05/26/17 21:00 05/28/17 20:14 (Narcan Inj) 0.4 mg UNSCH PRN IV PUSH 05/26/17 20:15 (Deltasone) 20 mg BID PO 05/27/17 21:00 05/28/17 20:13 (Tylenol) 650 mg Q4H PRN PO 05/27/17 20:45 05/28/17 20:13 (Ecotrin Ec) 325 mg DAILY PO 05/28/17 09:00 05/28/17 08:59 (Colace) 100 mg BID PRN PO 05/28/17 09:30 (Milk Of Magnesia Liq) 30 ml DAILY PRN PO 05/28/17 09:30 (Mag-Al Plus Susp Liq) 30 ml Q6H PRN PO 05/28/17 09:30 05/28/17 20:13 (Protonix) 40 mg DAILY PO 05/28/17 19:00 (Lipitor) 10 mg DAILY PO 05/29/17 09:00 Allergies Allergies Coded Allergies Influenza Virus Vaccines (Unverified Allergy, Severe, Anaphylaxis, 05/26/17) Sulfa (Sulfonamide Antibiotics) (Unverified Allergy, Severe, DYSPNEA, BRADYCARDIA, 05/26/17) avocado (Unverified Allergy, Severe, Swelling, 05/26/17) corn (Unverified Allergy, Severe, Shortness of Breath, 05/26/17) erythromycin base (Unverified Allergy, Severe, Swelling, 05/26/17) kiwi (Unverified Allergy, Severe, Swelling, 05/26/17) methylprednisolone (Unverified Allergy, Severe, ANAPHYLAXIS, 05/26/17) shellfish derived (Unverified Allergy, Severe, DYSPNEA, MITRAL VALVE PROLAPSE , 05/26/17) sulfur dioxide (Unverified Allergy, Severe, Dizziness, 05/26/17) wheat (Unverified Allergy, Severe, Swelling, 05/26/17) oyster extract (Unverified Allergy, Intermediate, Anaphylaxis, 05/26/17) Fish Containing Products (Unverified Adverse Reaction, Severe, Swelling, 05/26) iodine (Unverified Adverse Reaction, Severe, Rash, 05/26/17) jaci (Unverified Adverse Reaction, Severe, Swelling, 05/26/17) monosodium glutamate (Unverified Adverse Reaction, Severe, Swelling, 05/26/17) potassium iodide (Unverified Adverse Reaction, Severe, Rash, 05/26/17) povidone-iodine (Unverified Adverse Reaction, Severe, Rash, 05/26/17) sodium iodide (Unverified Adverse Reaction, Severe, Rash, 05/26/17) sodium iodide (Unverified Adverse Reaction, Severe, Rash, 05/26/17) Uncoded Allergies TEQUILA ( Allergy, Intermediate, Shortness of Breath, 09/29/13) ALOE ( Adverse Reaction, Severe, Rash, 09/29/13) PEPPERS ( Adverse Reaction, Severe, STOMACH ISSUES, 09/29/13) POWDER GLOVES ( Adverse Reaction, Severe, Rash, 09/29/13) Exam I&O / VS 05/28/17 05/28/17 05/29/17 15:00 23:00 07:00 Intake Total 530 ml 750 ml Balance 530 ml 750 ml Intake Oral 530 ml 750 ml # Voids 4 4 # Bowel Movements 1 1 Vital Signs Date Time Temp Pulse Resp B/P (MAP) Pulse Ox O2 Delivery O2 Flow Rate FiO2 05/28/17 16:13 97.6 72 16 133/94 (107) 93 05/28/17 15:00 73 05/28/17 12:15 98.0 74 18 140/90 (107) 94 05/28/17 10:00 16 05/28/17 08:13 97.3 83 16 158/100 (119) 95 05/28/17 08:10 151/88 (109) 05/28/17 08:00 71 05/28/17 08:00 97.3 83 16 158/100 (119) 95 05/28/17 04:00 97.2 64 18 166/72 (103) 98 05/27/17 23:55 96.8 69 21 193/99 (130) 94 Exam Comments alert, speech normal Cn intact MOTOR 5/5 BUE and BLE Objective Micro and Labs Laboratory Tests Test 05/27/17 20:50 Troponin I LESS THAN 0.02 Triglycerides Level 114 Cholesterol Level 230 LDL Cholesterol 127 HDL Cholesterol 80.4 Cholesterol/HDL Ratio 2.86 Diagnostic Tests ECHOcardiogram--no thrombus Matthew Workman PhD May 28, 2017 20:46
[2017-05-29] VITALS: BP 167/90; PULSE 65; RESP 20; TEMP 96.7; O2SAT 96
[2017-05-29 04:00] VITALS: BP 158/84; PULSE 59; RESP 20; TEMP 97.1; O2SAT 97
[2017-05-29 07:00] VITALS: PULSE 57
[2017-05-29] MEDS: ASPIRIN EC 325 MG TABEC PO SCH (08:18)
[2017-05-29] MEDS: PANTOPRAZOLE SOD 40 MG DELAYED RELEASE TAB PO SCH ×3 (08:18→08:25)
[2017-05-29 08:19] VITALS: BP 160/70; PULSE 66; RESP 15; TEMP 96.6; O2SAT 98
[2017-05-29] MEDS: predniSONE 20 MG TAB PO SCH (08:19)
[2017-05-29] MEDS: SODIUM CHLORIDE 0.9% FLUSH 10 ML FLUSH IV FLUSH SCH (08:19)
[2017-05-29] MEDS ORDERED: ATORVASTATIN 10 MG TAB PO SCH (09:00)
[2017-05-29 13:12] VITALS: BP 160/76; PULSE 68; RESP 16; TEMP 98.6; O2SAT 96
[2017-05-29] MEDS ORDERED: LOSARTAN 50 MG TAB PO SCH (13:45)
[2017-05-29 15:00] VITALS: BP 136/70; PULSE 61
[2017-05-29] MEDS ORDERED: AMLO10 PO (16:04)
[2017-05-29] MEDS ORDERED: ASPI325T33 PO (16:04)
--- NOTE | 2017-05-29 16:12 | HHI.DS ---
Discharge Summary Admission Date May 26, 2017 at 19:23 Discharge Date: May 29, 2017 Admitting Diagnosis episodic blindness, neurologic symptoms (1) Multiple sclerosis ICD Code: G35 - Multiple sclerosis (2) Blindness ICD Code: H54.7 - Unspecified visual loss Status: Acute (3) Neurological symptoms ICD Code: R29.90 - Unspecified symptoms and signs involving the nervous system Status: Acute Procedures none Brief History - From Admission Mrs. Spain is a 56 year-old female. She has a history of multiple sclerosis. Recently she's had an exacerbation. She may have also had angioedema. She describes a right-sided headache and recurrent episodes of facial swelling more specifically around her orbits which of inhibited her ability to see. She's had this recently. She had been recovering and noticed statistically different change in her ability to see yesterday which prompted her to come into the emergency department. This episode of transient blindness was not related to eye swelling/mechanical obstruction. MRI of the brain shows areas of demyelinization, which are consistent with her multiple sclerosis but determination of an acute CVA in the setting of his difficult. Her vision has returned to his baseline status at this point. Overall she still has malaise. She has been on losartan which could be a cause of her angioedema. However, she also has sclerosis and autoimmunity could affect an episode of angioedema also. No other complaints when seen. No reports of unilateral weakness. She follows in outpatient with Dr. Workman is a neurologist. CBC/BMP: 05/27/17 0440 05/27/17 0440 Significant Findings Laboratory Tests Test 05/26/17 17:30 05/26/17 18:40 05/27/17 04:40 05/27/17 13:30 Basophils (%) (Auto) 3.5 % (0.0-2.0) Basophils # (Auto) 0.3 TH/MM3 (0-0.2) Random Glucose 107 MG/DL (74-106) Calcium Level 8.4 MG/DL (8.5-10.1) 8.2 MG/DL (8.5-10.1) Estimat Glomerular Filtration Rate 74 ML/MIN (>89) Platelet Count 138 TH/MM3 (150-450) Chloride Level 108 MEQ/L (98-107) Troponin I LESS THAN 0.02 NG/ML Test 05/27/17 20:50 Troponin I LESS THAN 0.02 NG/ML Cholesterol Level 230 MG/DL (120-200) LDL Cholesterol 127 MG/DL (0-99) HDL Cholesterol 80.4 MG/DL (40.0-60.0) PE at Discharge GENERAL: This is a well-nourished, well-developed patient, in no apparent distress. SKIN: No rashes, warm and dry HEAD: Atraumatic. Normocephalic. EYES: Pupils equal round and reactive. Extraocular motions intact. No scleral icterus. ENT: Nose without bleeding, or drainage, Airway patent. NECK: Trachea midline. Supple CARDIOVASCULAR: Regular rate and rhythm without murmurs, gallops, or rubs. RESPIRATORY: Fair air entry bilaterally. No wheezes, rales, or rhonchi. GASTROINTESTINAL: Abdomen soft, non-tender, nondistended. Positive bowel sounds MUSCULOSKELETAL: Extremities without clubbing, cyanosis, or edema. Pedal pulses appreciated NEUROLOGICAL: Awake and alert. Moves all extremity. Normal speech.no focal neurological deficit Hospital Course pt admitted for tia including vision changes all imaging been done , neurology consulted , did not think related to her MS but rather TIA,rec [id number] ,statin , stoping losartan , i replaced it with norvasc 10 mg daily bp at dc was checked and still 179/90 . taper steroid for angioedema caused by losartan Pt Condition on Discharge: Fair Discharge Disposition: Discharge Home Discharge Time: <= 30 minutes Discharge Instructions DIET: Follow Instructions for: Heart Healthy Diet Activities you can perform: Weight Bearing as Fadia Follow up Referrals: Neurology - 1 Week with Matthew Workman PhD MD New Medications: Amlodipine (Norvasc) 10 Mg Tab 10 MG PO DAILY for Blood Pressure Management, #30 TAB [address] (Aspirin EC) 325 Mg Tabdr 325 MG PO DAILY for tia, #30 TAB Continued Medications: Albuterol 18 GM Inh (Ventolin Hfa 18 GM Inh) 90 Mcg/Act Aer 2 PUFF INH Q4-6H PRN for SHORTNESS OF BREATH, #1 INHALER 0 Refills Albuterol Neb (Albuterol Neb) 0.63 Mg/3 Ml Neb 0.63 MG NEB Q4HR NEB PRN for SHORTNESS OF BREATH, #25 NEBULE 0 Refills Dicyclomine (Dicyclomine) 20 Mg Tab 20 MG PO QID PRN for ABDOMINAL CRAMPING, #120 TAB 0 Refills Epinephrine Inj (Epipen 2-Robert Inj) 0.3 Mg/0.3 Ml Pfpen 0.3 MG SQ ONCE PRN for ALLERGIC REACTION, #1 PACK 0 Refills Fluticasone Nasal [place] (Fluticasone Nasal [place]) 50 Mcg/Act Naspr 50 MCG EACH NARE BID for Allergy Management, #1 BOTTLE 0 Refills 50 mcg/spray Tramadol (Tramadol) 50 Mg Tab 50 MG PO Q6H PRN for PAIN, TAB 0 Refills Iwona More MD May 29, 2017 16:12
== END 2017-05-29 17:11 | disposition home or self-care (01) ==
LOC: PHED 16:36 → PHEDA 19:23 → INTOOBSV 19:23 → PH3A 21:04
PROVIDERS: ADMIT Hospitalist; ATTEND Hospitalist
DX: H53.123 Transient visual loss, bilateral (principal); T78.3XXA Angioneurotic edema, initial encounter; R51 Headache; G35 Multiple sclerosis; R07.9 Chest pain, unspecified; R06.02 Shortness of breath; I10 Essential (primary) hypertension; E78.00 Pure hypercholesterolemia, unspecified; K21.9 Gastro-esophageal reflux disease without esophagitis; I34.1 Nonrheumatic mitral (valve) prolapse; J44.9 Chronic obstructive pulmonary disease, unspecified; J45.909 Unspecified asthma, uncomplicated; I77.1 Stricture of artery; M06.9 Rheumatoid arthritis, unspecified; E78.5 Hyperlipidemia, unspecified; F41.9 Anxiety disorder, unspecified; H91.90 Unspecified hearing loss, unspecified ear; M19.90 Unspecified osteoarthritis, unspecified site; Z87.891 Personal history of nicotine dependence; Z79.899 Other long term (current) drug therapy; Z98.1 Arthrodesis status
CPT/HCPCS: 70450; 70544; 70548; 70553; 71010; 80048; 80053; 80061; 80307; 82550; 84484; 85025; 85610; 85652; 85730; 93005; 93306; A9579; G0378; G8987-GP; G8988-GP; J7512

== ENCOUNTER 2017-06-09 12:29 | Observation (INO) | payer OTHER ==
[2017-06-09] VITALS (7 sets, daily range): BP systolic 150–216; BP diastolic 82–113; PULSE 67–78; RESP 16–20; TEMP 96.5–98.3; O2SAT 96–99
[~2017-06-09 12:29] MED LIST changes: +ALBU0.63 NEB; +AMLO10 PO; +ASPI325T33 PO; -CORT1SOL LEFT EAR; +CYCL1TAB29 PO; +DICY20TA10 PO; +EPIP0.3I SQ; -MECL-62 PO; -ZOFR4TAB PO
--- NOTE | 2017-06-09 13:02 | PD ---
HPI Chief Complaint: neurologic symptoms Time Seen by Provider: 12:42 Travel History International Travel<30 days: No Contact w/Intl Traveler<30days: No Traveled to known affect area: No History of Present Illness HPI 56-year-old female was brought in by her for slurred speech and right- sided weakness. Patient's stated that patient woke up with the symptoms. Patient has history of MS and TIA. Patient was admitted to [facility] May 26 and discharged May 29 for TIAs. Patient had MRI of the brain and MRA of the brain and carotids which were normal. Patient had MRV which were normal. CT of the brain also normal. Patient was seen by Dr. Workman neurologist. Patient was discharged home with advised to take aspirin 325 mg daily. Patient started having severe headache bitemporal area with flashing light on the right side the visual rachel yesterday. Patient woke up with slurred speech and right-sided weakness this morning. Patient states that she had blurring vision. Patient denies any neck pain. Patient denies any chest pain or shortness of breath. Patient denies abdominal pain. Patient denies any fever chills. 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) Cardiovascular Problems: Yes (MITRAL VALVE PROLAPSE) High Cholesterol: Yes (BORDERLINE) Chemotherapy: No Chest Pain: No Congestive Heart Failure: No COPD: Yes Cerebrovascular Accident: No Diminished Hearing: Yes (BL hearing aids) Endocrine: No Gastrointestinal Disorders: Yes (PERF BOWEL HX) GERD: Yes Genitourinary: Yes (ENDOMETRIOSIS) Hepatitis: No Hiatal Hernia: No Herniated Disk: Yes Hypertension: Yes Immune Disorder: Yes Implanted Vascular Access Dvce: Yes Musculoskeletal: Yes (R SHOULDER ROTARY CUP SX 12/21) Neurologic: Yes (MS) Psychiatric: Yes Reproductive: Yes (HX SEVERE ENDOMETRIOSIS, SCAR TISSUE REMOVAL) Respiratory: Yes Immunizations Current: Yes Radiation Therapy: No Seizures: No Thyroid Disease: No Ulcer: Yes Menopausal: Yes : 3 Para: 2 Miscarriage: 1 Dilation and Curettage (D&C): Yes Tubal Ligation: Yes Past Surgical History Abdominal Surgery: Yes (COLONOSCOPY, ENDOSCOPY 03/29; BOWEL RESECTION ) AICD: No Appendectomy: Yes Body Medical Devices: BILATERAL BREAST AUGMENTATION 03/22 Cardiac Surgery: No Section: Yes Cholecystectomy: Yes Ear Surgery: No Endocrine Surgery: No Eye Surgery: No Genitourinary Surgery: Yes (HX BLADDER CLIPPED SEVERAL TIMES) Gynecologic Surgery: Yes (HX SEVERE ENDOMETRIOSIS, SCAR TISSUE REMOVAL) Hysterectomy: Yes Joint Replacement: No Neurologic Surgery: Yes (04/17/14 C3-4 ACDF) Oral Surgery: Yes (4 BRIDGES, CAPS, ROOT CANALS) Pacemaker: No Thoracic Surgery: Yes (BILATERAL BREAST AUGMENTATION 03/22) Other Surgery: Yes (04/17/14 C3-4 ACDF) Social History Alcohol Use: Yes (2-3 glasses wine 4-5 nights/week) Tobacco Use: No Substance Use: No Allergies-Medications (Allergen,Severity, Reaction): Coded Allergies: Influenza Virus Vaccines (Unverified Allergy, Severe, Anaphylaxis, ) Sulfa (Sulfonamide Antibiotics) (Unverified Allergy, Severe, DYSPNEA, BRADYCARDIA, 06/09/17) avocado (Unverified Allergy, Severe, Swelling, 06/09/17) corn (Unverified Allergy, Severe, Shortness of Breath, 06/09/17) erythromycin base (Unverified Allergy, Severe, Swelling, 06/09/17) kiwi (Unverified Allergy, Severe, Swelling, 06/09/17) methylprednisolone (Unverified Allergy, Severe, ANAPHYLAXIS, 06/09/17) shellfish derived (Unverified Allergy, Severe, DYSPNEA, MITRAL VALVE PROLAPSE, 06/09/17) sulfur dioxide (Unverified Allergy, Severe, Dizziness, 06/09/17) wheat (Unverified Allergy, Severe, Swelling, 06/09/17) oyster extract (Unverified Allergy, Intermediate, Anaphylaxis, 06/09/17) Fish Containing Products (Unverified Adverse Reaction, Severe, Swelling, 06/09/17) iodine (Unverified Adverse Reaction, Severe, Rash, 06/09/17) jaci (Unverified Adverse Reaction, Severe, Swelling, 06/09/17) monosodium glutamate (Unverified Adverse Reaction, Severe, Swelling, 06/09) potassium iodide (Unverified Adverse Reaction, Severe, Rash, 06/09/17) povidone-iodine (Unverified Adverse Reaction, Severe, Rash, 06/09/17) sodium iodide (Unverified Adverse Reaction, Severe, Rash, 06/09/17) sodium iodide (Unverified Adverse Reaction, Severe, Rash, 06/09/17) Uncoded Allergies: TEQUILA (Allergy, Intermediate, Shortness of Breath, 09/29/13) ALOE (Adverse Reaction, Severe, Rash, 09/29/13) PEPPERS (Adverse Reaction, Severe, STOMACH ISSUES, 09/29/13) POWDER GLOVES (Adverse Reaction, Severe, Rash, 09/29/13) Reported Meds & Prescriptions Reported Meds & Active Scripts Active Norvasc (Amlodipine Besylate) 10 Mg Tab 10 Mg PO DAILY Aspirin EC (Aspirin) 325 Mg Tabdr 325 Mg PO DAILY Reported Omeprazole 20 Mg Tab 20 Mg PO DAILY Mometasone Topical (Mometasone Furoate) 0.01 % Oint 1 Applic TOPICAL DAILY Triamcinolone Topical 0.5 % Oint 1 Applic TOPICAL BID Silvadene Topical (Silver Sulfadiazine) 1 % Cream 1 Applic TOPICAL DIRECTED Albuterol Neb (Albuterol Sulfate) 0.63 Mg/3 Ml Neb 0.63 Mg NEB Q4HR NEB PRN Epipen 2-Robert Inj (Epinephrine) 0.3 Mg/0.3 Ml Pfpen 0.3 Mg SQ ONCE PRN Dicyclomine (Dicyclomine HCl) 20 Mg Tab 20 Mg PO QID PRN Flexeril (Cyclobenzaprine HCl) 10 Mg Tab 10 Mg PO TID PRN Tramadol (Tramadol HCl) 50 Mg Tab 50 Mg PO Q6H PRN Fluticasone Nasal [place] 50 Mcg/Act Naspr 50 Mcg EACH NARE BID 50 mcg/spray Ventolin Hfa 18 GM Inh (Albuterol Sulfate) 90 Mcg/Act Aer 2 Puff INH Q4-6H PRN Review of Systems General / Constitutional: No: Fever Eyes: Positive: Blurred Vision, No: Visual changes HENT: Positive: Headaches Cardiovascular: No: Chest Pain or Discomfort Respiratory: No: Shortness of Breath Gastrointestinal: No: Abdominal Pain Genitourinary: No: Dysuria Musculoskeletal: No: Pain Skin: No Rash Neurologic: Positive: Weakness Psychiatric: No: Depression Endocrine: No: Polydipsia Hematologic/Lymphatic: No: Easy Bruising Physical Exam Narrative GENERAL: Well-nourished, well-developed patient. SKIN: Focused skin assessment warm/dry. HEAD: Normocephalic. EYES: No scleral icterus. No injection or drainage. NECK: Supple, trachea midline. No JVD or lymphadenopathy. CARDIOVASCULAR: Regular rate and rhythm without murmurs, gallops, or rubs. RESPIRATORY: Breath sounds equal bilaterally. No accessory muscle use. GASTROINTESTINAL: Abdomen soft, non-tender, nondistended. MUSCULOSKELETAL: No cyanosis, or edema. BACK: Nontender without obvious deformity. No CVA tenderness. Neurologic exam: Patient's awake and alert. No obvious facial weakness. Patient has subjective mild weakness in the right arm and right leg. Deep tendon reflexes 1+ and equal. Negative Babinski. Data Data Last Documented VS Vital Signs Date Time Temp Pulse Resp B/P (MAP) Pulse Ox O2 Delivery O2 Flow Rate FiO2 06/09/17 15:26 75 150/85 (106) 97 06/09/17 13:20 16 Room Air 06/09/17 12:47 98.3 Orders Orders Electrocardiogram (06/09/17 12:44) Complete Blood Count With Diff (06/09/17 12:44) Comprehensive Metabolic Panel (06/09/17 12:44) Prothrombin Time / Inr (Pt) (06/09/17 12:44) Act Partial Throm Time (Ptt) (06/09/17 12:44) Thyroid Stimulating Hormone (06/09/17 12:44) Ct Brain W/O Iv Contrast(Rout) (06/09/17 12:44) Iv Access Insert/Monitor (06/09/17 12:44) Ecg Monitoring (06/09/17 12:44) Oximetry (06/09/17 12:44) Sodium Chlor 0.9% 1000 Ml Inj (Ns 1000 M (06/09/17 12:45) [place] (06/09/17 12:44) Mri Brain W/O Contrast (06/09/17 13:21) Lorazepam Inj (Ativan Inj) (06/09/17 13:45) Place In Observation (06/09/17 ) Vital Signs (Adult) MAIA.Q4H (06/09/17 16:26) Activity Oob With Assistance (06/09/17 16:26) Client Sales And Service Officer / Telemetry MAIA.Q8H (06/09/17 16:26) ^ Fall Precautions (06/09/17 16:27) Admit Order (Ed Use Only) (06/09/17 16:28) Consult Neurology (06/09/17 ) Labs Laboratory Tests Test 06/09/17 12:56 White Blood Count 8.5 TH/MM3 Red Blood Count 4.36 MIL/MM3 Hemoglobin 13.3 GM/DL Hematocrit 39.5 % Mean Corpuscular Volume 90.5 FL Mean Corpuscular Hemoglobin 30.6 PG Mean Corpuscular Hemoglobin Concent 33.8 % Red Cell Distribution Width 12.0 % Platelet Count 160 TH/MM3 Mean Platelet Volume 9.1 FL Neutrophils (%) (Auto) 73.0 % Lymphocytes (%) (Auto) 18.1 % Monocytes (%) (Auto) 7.3 % Eosinophils (%) (Auto) 0.5 % Basophils (%) (Auto) 1.1 % Neutrophils # (Auto) 6.3 TH/MM3 Lymphocytes # (Auto) 1.5 TH/MM3 Monocytes # (Auto) 0.6 TH/MM3 Eosinophils # (Auto) 0.0 TH/MM3 Basophils # (Auto) 0.1 TH/MM3 CBC Comment DIFF FINAL Differential Comment Prothrombin Time 10.7 SEC Prothromb Time International Ratio 1.0 RATIO Activated Partial Thromboplast Time 25.5 SEC Blood Urea Nitrogen 17 MG/DL Creatinine 0.67 MG/DL Random Glucose 102 MG/DL Total Protein 7.6 GM/DL Albumin 4.0 GM/DL Calcium Level 9.0 MG/DL Alkaline Phosphatase 73 U/L Aspartate Amino Transf (AST/SGOT) 30 U/L Alanine Aminotransferase (ALT/SGPT) 41 U/L Total Bilirubin 1.3 MG/DL Sodium Level 139 MEQ/L Potassium Level 3.5 MEQ/L Chloride Level 105 MEQ/L Carbon Dioxide Level 22.1 MEQ/L Anion Gap 12 MEQ/L Estimat Glomerular Filtration Rate 90 ML/MIN Thyroid Stimulating Hormone 3rd Gen 1.840 uIU/ML MDM Medical Decision Making Medical Screen Exam Complete: Yes Emergency Medical Condition: Yes Interpretation(s) Last Impressions Brain MRI 06/09/17 1321 Signed Impressions: Service Date/Time: Friday, June 09, 2017 14:58 - CONCLUSION: 1. No acute intracranial abnormality. 2. Mild chronic small vessel ischemic change. Torrey Reinoso Jr., MD Head CT 06/09/17 1244 Signed Impressions: Service Date/Time: Friday, June 09, 2017 14:24 - CONCLUSION: Negative noncontrast CT brain. Torrey Matthew MD 16 10 PM. CBC within normal limit. CMP within normal limit. Differential Diagnosis Differential diagnosis including TIA, CVA, acute exacerbation MS. Narrative Course 56-year-old female with headache slurring speech and weakness in right arm right leg. Patient woke up with the symptoms this morning. Symptoms have improved since she woke up this morning. History of TIA and MS. Normal saline solution 70 cc an hour. Head of bed flat. O2 2 L nasal cannula. I spoke with neurologist manufacturing automation engineer Dr. Lancaster covering for Dr. Workman. Advised MRI and medical observation and neurology consultation. Diagnosis Primary Impression: Transient neurological symptoms Admitting Information Admitting Physician Requests: Observation Fabricio Carroll MD Jun 09, 2017 13:02
[2017-06-09] MEDS ORDERED: TRIA0.5O TOPICAL (13:07)
[2017-06-09] MEDS ORDERED: SILV1CRE20 TOPICAL (13:07)
[2017-06-09] MEDS ORDERED: MOME0.1O20 TOPICAL (13:07)
[2017-06-09] MEDS ORDERED: OMEP20TA PO (13:08)
[2017-06-09 13:09] LABS: AUTOMATED NEUTROPHIL # 6.3 TH/MM3 (1.8-7.7); BASOPHIL # 0.1 TH/MM3 (0-0.2); BASOPHIL % 1.1 % (0.0-2.0); EOSINOPHIL % 0.5 % (0.0-4.0); HEMATOCRIT 39.5 % (35.0-46.0); HEMOGLOBIN 13.3 GM/DL (11.6-15.3); LYMPH % 18.1 % (9.0-44.0); LYMPHOCYTE # 1.5 TH/MM3 (1.0-4.8); MEAN CELL VOLUME 90.5 FL (80.0-100.0); MEAN CORPUSCULAR HEMOGLOBIN 30.6 PG (27.0-34.0); MEAN CORPUSCULAR HGB CONC 33.8 % (32.0-36.0); MEAN PLATELET VOLUME 9.1 FL (7.0-11.0); MONO % 7.3 % (0.0-8.0); MONOCYTE # 0.6 TH/MM3 (0-0.9); PLATELET COUNT 160 TH/MM3 (150-450); RED BLOOD COUNT 4.36 MIL/MM3 (4.00-5.30); WHITE BLOOD COUNT 8.5 TH/MM3 (4.0-11.0)
[2017-06-09] MEDS: SODIUM CHLOR 0.9% 1000 ML INJ 1,000 ML IV SCH (13:09)
[2017-06-09 13:18] LABS: CHLORIDE 105 MEQ/L (98-107); SODIUM (NA) 139 MEQ/L (136-145)
[2017-06-09 13:22] LABS: PROTHROMBIN TIME - PATIENT 10.7 SEC (9.8-11.6)
[2017-06-09 13:24] LABS: BICARBONATE 22.1 MEQ/L (21.0-32.0); BLOOD UREA NITROGEN 17 MG/DL (7-18); GLUCOSE,RANDOM 102 MG/DL (74-106)
[2017-06-09 13:26] LABS: AST (GOT) 30 U/L (15-37)
[2017-06-09 13:27] LABS: ALT (GPT) 41 U/L (10-53); CREATININE 0.67 MG/DL (0.50-1.00); GLOMERULAR FILTRATION RATE 90 ML/MIN (>89)
[2017-06-09 13:28] LABS: TOTAL BILIRUBIN ADULT 1.3 MG/DL (0.2-1.0); TOTAL PROTEIN 7.6 GM/DL (6.4-8.2)
[2017-06-09 13:31] LABS: ALKALINE PHOSPHATASE 73 U/L (45-117)
[2017-06-09] MEDS ORDERED: LORazepam 2 MG/ML VIAL IV PUSH ONE (13:45)
--- NOTE | 2017-06-09 15:22 | RADRPT ---
EXAM DATE/TIME: 06/09/2017 14:58 [facility] COMPARISON: No previous studies available for comparison. INDICATIONS : Slurred speech. MEDICAL HISTORY : Multiple sclerosis. Chronic obstructive pulmonary disease. SURGICAL HISTORY : Fusion, cervical. Fusion, lumbar. Tubal ligation. ENCOUNTER: Initial ACUITY: PAIN SCORE: 3/10 LOCATION: Head TECHNIQUE: Multiplanar, multisequence MRI of the brain was performed without contrast. FINDINGS: CEREBRUM: The ventricles are normal for age. No evidence of midline shift, mass lesion, hemorrhage or acute in farction. No extraaxial fluid collections are seen. The pituitary gland and suprasellar cistern are normal in configuration. WHITE MATTER: A few scattered foci of high flair signal involving the periventricular and subcortical white matter of both cerebral hemispheres. POSTERIOR FOSSA: The cerebellum and brainstem are intact. The 4th ventricle is midline. The cerebellopontine angle is unremarkable. The cerebellar tonsils are normal in position. DIFFUSION IMAGING: No focal areas of restricted diffusion are seen. No evidence of acute infarction. EXTRACRANIAL: The visualized portions of the orbits and paranasal sinuses are unremarkable. CONCLUSION: 1. No acute intracranial abnormality. 2. Mild chronic small vessel ischemic change. Torrey Reinoso Jr., MD on June 09, 2017 at 15:18 Board Certified Radiologist. This report was verified electronically.
--- NOTE | 2017-06-09 15:38 | RADRPT ---
EXAM DATE/TIME: 06/09/2017 14:24 [facility] COMPARISON: CT BRAIN W/O CONTRAST, May 26, 2017, 17:35. INDICATIONS : Slurred speech, left facial droop, cephalgia x 3 days. Evaluate for cerebrovascular accident. RADIATION DOSE: 58.72 CTDIvol (mGy) MEDICAL HISTORY : Multple sclerosis. Chronic obstructive pulmonary disease. Cerebrovascular disease.Hypertension. Card iovascular disease. SURGICAL HISTORY : Appendectomy. Cholecystectomy.Hysterectomy. ENCOUNTER: Initial ACUITY: 3 days PAIN SCALE: 5/10 LOCATION: cranial TECHNIQUE: Multiple contiguous axial images were obtained of the head. Using automated exposure control and adj ustment of the mA and/or kV according to patient size, radiation dose was kept as low as reasonably a chievable to obtain optimal diagnostic quality images. DICOM format image data is available electro nically for review and comparison. FINDINGS: CEREBRUM: The ventricles are normal for age. No evidence of midline shift, mass lesion, hemorrhage or acute in farction. No extra-axial fluid collections are seen. POSTERIOR FOSSA: The cerebellum and brainstem are intact. The 4th ventricle is midline. The cerebellopontine angle i s unremarkable. EXTRACRANIAL: The visualized portion of the orbits is intact. SKULL: The calvaria is intact. No evidence of skull fracture. CONCLUSION: Negative noncontrast CT brain. Torrey Matthew MD on June 09, 2017 at 15:28 Board Certified Radiologist. This report was verified electronically.
[2017-06-09] MEDS ORDERED: DICYCLOMINE HCL 20 MG TAB PO PRN (17:45)
[2017-06-09] MEDS ORDERED: CYCLOBENZAPRINE HCL 10 MG TAB PO PRN (17:45)
[2017-06-09] MEDS ORDERED: ALBUTEROL SULFATE 90 MCG/ACT HFA 8 GM INHALER INH PRN (17:45)
[2017-06-09] MEDS ORDERED: RESP: ALBUTEROL 0.63 MG/3 ML NEB (PRN) NEB (17:45)
--- NOTE | 2017-06-09 17:58 | HHI.HP ---
[facility] Service [facility] Primary Care Physician Non-Staff Admission Diagnosis transient neurological symptoms. Cephalgia. Diagnoses: (1) Neurological symptoms Diagnosis: Principal (2) Cephalgia Diagnosis: Principal (3) History of TIAs Diagnosis: Principal Chief Complaint: Multiple neurological symptoms to include headache, nausea, dizziness, disequilibrium, eyes swollen, chest tightness, slurred speech, left facial numbness Travel History International Travel<30 Days: No Contact w/Intl Traveler <30 Da: No Traveled to Known Affected Are: No History of Present Illness Written by Brayden Pierre, acting as scribe for Dr. Blandon on 06/09/17 at 17:36. 56-year-old female with known history of multiple sclerosis, history TIA, COPD, hypertension, hyperlipidemia who presented to hospital because of recurrent neurological symptoms. Patient states that her symptoms started 2 days ago with bilateral sharp headache radiating in the frontal area and going to the back of her head. She had associated nausea but no vomiting, dizziness whenever she tried to stand up. Disequilibrium when she tried to ambulate. She states that she was experiencing some chest tightness, she is experiencing bright flashing lights in her vision. This persisted daily for 2 days she states that her headache pain was a "13" out of 10 on a pain scale. Then when she woke up this morning her face was swollen where her eyes were almost closed shut. She has some left facial numbness, her headache had not improved. They called her neurologist office Dr. Workman, the staff of which notified her to go to the ER for evaluation. D/w ER attending, who stated that Dr. Lancaster recommended only MRI of brain, no further workup, neuro will consult. Patient recently was admitted on May 26, 2007 discharge in May 29, 2007 for full neurological workup for similar neurological symptoms. At that time she was having intermittent blindness along with this eyelid swelling. Workup that was done did not indicate any acute CVA but neuro suspected a vertebrobasilar TIA and NOT an MS exacerbation. Patient was discharged home on aspirin and blood pressure management; she was also recommended statin, however patient was not taken a statin at home the past week. Patient was evaluated in emergency department in which Dr. Workman was called and it was requested that the patient be observed in the hospital and neurology will evaluate the patient and make further recommendations. Review of Systems Neurologic: COMPLAINS OF: Abnormal gait, Headache, Localized weakness, Speech Problems, Poor Balance Except as stated in HPI: all other systems reviewed are Neg Past Family Social History Past Medical History Multiple sclerosis Hypertension Hyperlipidemia Chronic obstructive pulmonary disease History of endometriosis History mitral valve prolapse Gastroesophageal reflux Past Surgical History Endoscopy, colonoscopy Breast augmentation Abdominal surgery for bowel obstruction Breast cyst removal Right rotator cuff surgery Hysterectomy Cholecystectomy Appendectomy Urinary bladder clipping Reported Medications Reported Meds & Active Scripts Active Norvasc (Amlodipine Besylate) 10 Mg Tab 10 Mg PO DAILY Aspirin EC (Aspirin) 325 Mg Tabdr 325 Mg PO DAILY Reported Omeprazole 20 Mg Tab 20 Mg PO DAILY Mometasone Topical (Mometasone Furoate) 0.01 % Oint 1 Applic TOPICAL DAILY Triamcinolone Topical 0.5 % Oint 1 Applic TOPICAL BID Silvadene Topical (Silver Sulfadiazine) 1 % Cream 1 Applic TOPICAL DIRECTED Albuterol Neb (Albuterol Sulfate) 0.63 Mg/3 Ml Neb 0.63 Mg NEB Q4HR NEB PRN Epipen 2-Robert Inj (Epinephrine) 0.3 Mg/0.3 Ml Pfpen 0.3 Mg SQ ONCE PRN Dicyclomine (Dicyclomine HCl) 20 Mg Tab 20 Mg PO QID PRN Flexeril (Cyclobenzaprine HCl) 10 Mg Tab 10 Mg PO TID PRN Tramadol (Tramadol HCl) 50 Mg Tab 50 Mg PO Q6H PRN Fluticasone Nasal [place] 50 Mcg/Act Naspr 50 Mcg EACH NARE BID 50 mcg/spray Ventolin Hfa 18 GM Inh (Albuterol Sulfate) 90 Mcg/Act Aer 2 Puff INH Q4-6H PRN Allergies: Coded Allergies: Influenza Virus Vaccines (Unverified Allergy, Severe, Anaphylaxis, ) Sulfa (Sulfonamide Antibiotics) (Unverified Allergy, Severe, DYSPNEA, BRADYCARDIA, 06/09/17) avocado (Unverified Allergy, Severe, Swelling, 06/09/17) corn (Unverified Allergy, Severe, Shortness of Breath, 06/09/17) erythromycin base (Unverified Allergy, Severe, Swelling, 06/09/17) kiwi (Unverified Allergy, Severe, Swelling, 06/09/17) methylprednisolone (Unverified Allergy, Severe, ANAPHYLAXIS, 06/09/17) shellfish derived (Unverified Allergy, Severe, DYSPNEA, MITRAL VALVE PROLAPSE, 06/09/17) sulfur dioxide (Unverified Allergy, Severe, Dizziness, 06/09/17) wheat (Unverified Allergy, Severe, Swelling, 06/09/17) oyster extract (Unverified Allergy, Intermediate, Anaphylaxis, 06/09/17) Fish Containing Products (Unverified Adverse Reaction, Severe, Swelling, 06/09/17) iodine (Unverified Adverse Reaction, Severe, Rash, 06/09/17) jaci (Unverified Adverse Reaction, Severe, Swelling, 06/09/17) monosodium glutamate (Unverified Adverse Reaction, Severe, Swelling, 06/09) potassium iodide (Unverified Adverse Reaction, Severe, Rash, 06/09/17) povidone-iodine (Unverified Adverse Reaction, Severe, Rash, 06/09/17) sodium iodide (Unverified Adverse Reaction, Severe, Rash, 06/09/17) sodium iodide (Unverified Adverse Reaction, Severe, Rash, 06/09/17) Uncoded Allergies: TEQUILA (Allergy, Intermediate, Shortness of Breath, 09/29/13) ALOE (Adverse Reaction, Severe, Rash, 09/29/13) PEPPERS (Adverse Reaction, Severe, STOMACH ISSUES, 09/29/13) POWDER GLOVES (Adverse Reaction, Severe, Rash, 09/29/13) Family History Reviewed is significant for stomach cancer Social History Patient quit smoking 10 years ago, prior to that she smoked one pack a cigarettes a day, she does drink wine occasionally. Denies any illicit drugs Physical Exam Vital Signs Vital Signs Date Time Temp Pulse Resp B/P (MAP) Pulse Ox O2 Delivery O2 Flow Rate FiO2 06/09/17 16:39 71 16 153/84 (107) 98 Room Air 06/09/17 15:26 75 150/85 (106) 97 06/09/17 13:20 67 16 153/82 (105) 97 Room Air 06/09/17 13:07 16 97 Room Air 06/09/17 12:47 98.3 78 20 216/113 (147) 99 Physical Exam GENERAL: Well-developed, well-nourished, in no acute distress. alert and orientated HEENT: Head is normocephalic without any lesions or masses noted. Facial features are symmetric, mild bilateral heliotropic rash on cheeks w/ mild periorbital edema Ears: intact ear canals BL; has amplifiers in both ears Eyes: Pupils equal round reactive to light. Extraocular muscles are intact. Conjunctivae were clear. Oropharyngeal: Pharynx without any erythema edema. Tongue is midline without deviation. Buccal mucosa is moist without any masses or lesions NECK: Supple without any masses. Trachea midline no deviation. No JVD CARDIAC: Regular rhythm, regular rate. S1/S2 are heard. No murmurs gallops or rubs. LUNGS: Clear to auscultation bilaterally. No wheeze, rhonchi or rales. No use of accessory muscles on inspiration or expiration. ABDOMEN: Soft, nontender. Nondistended. Bowel sounds heard in all 4 quadrants. EXTREMITIES: No edema, cyanosis, clubbing NEUROLOGY: Mood and affect appear appropriate. No facial droop nor any slurred speech noted on my exam. Uvula and tongue in midline. Muscle strength 4/5 in upper extremities bilaterally and 5/5 lower extremities bilaterally. Deep tendon reflexes are diminished in bilateral lower extremities Psychiatry: tearful on exam, makes good eye contact Laboratory Laboratory Tests Test 06/09/17 12:56 White Blood Count 8.5 Red Blood Count 4.36 Hemoglobin 13.3 Hematocrit 39.5 Mean Corpuscular Volume 90.5 Mean Corpuscular Hemoglobin 30.6 Mean Corpuscular Hemoglobin Concent 33.8 Red Cell Distribution Width 12.0 Platelet Count 160 Mean Platelet Volume 9.1 Neutrophils (%) (Auto) 73.0 Lymphocytes (%) (Auto) 18.1 Monocytes (%) (Auto) 7.3 Eosinophils (%) (Auto) 0.5 Basophils (%) (Auto) 1.1 Neutrophils # (Auto) 6.3 Lymphocytes # (Auto) 1.5 Monocytes # (Auto) 0.6 Eosinophils # (Auto) 0.0 Basophils # (Auto) 0.1 CBC Comment DIFF FINAL Differential Comment Prothrombin Time 10.7 Prothromb Time International Ratio 1.0 Activated Partial Thromboplast Time 25.5 Blood Urea Nitrogen 17 Creatinine 0.67 Random Glucose 102 Total Protein 7.6 Albumin 4.0 Calcium Level 9.0 Alkaline Phosphatase 73 Aspartate Amino Transf (AST/SGOT) 30 Alanine Aminotransferase (ALT/SGPT) 41 Total Bilirubin 1.3 Sodium Level 139 Potassium Level 3.5 Chloride Level 105 Carbon Dioxide Level 22.1 Anion Gap 12 Estimat Glomerular Filtration Rate 90 Thyroid Stimulating Hormone 3rd Gen 1.840 Result Diagram: 06/09/17 1256 06/09/17 1256 Imaging Last Impressions Brain MRI 06/09/17 1321 Signed Impressions: Service Date/Time: Friday, June 09, 2017 14:58 - CONCLUSION: 1. No acute intracranial abnormality. 2. Mild chronic small vessel ischemic change. Torrey Reinoso Jr., MD Head CT 06/09/17 1244 Signed Impressions: Service Date/Time: Friday, June 09, 2017 14:24 - CONCLUSION: Negative noncontrast CT brain. MD Freddy Nair VTE Risk Assessment Caprinrene VTE Risk Assessment: Mod/High Risk (score >= 2) Caprini Risk Assessment Model Point Value = 1 Point Value = 2 Point Value = 3 Point Value = 5 Age 41-60 Minor surgery BMI > 25 kg/m2 Swollen legs Varicose veins or History of unexplained or recurrent spontaneous Oral contraceptives or hormone replacement Sepsis (< 1 month) Serious lung disease, including pneumonia (< 1 month) Abnormal pulmonary function Acute myocardial infarction Congestive heart failure (< 1 month) History of inflammatory bowel disease Medical patient at bed rest Age 61-74 Arthroscopic surgery Major open surgery (> 45 min) Laparoscopic surgery (> 45 min) Malignancy Confined to bed (> 72 hours) Immobilizing plaster cast Central venous access Age >= 75 History of VTE Family history of VTE Factor V Leiden Prothrombin [id number] Lupus anticoagulant Anticardiolipin antibodies Elevated serum homocysteine Heparin-induced thrombocytopenia Other congenital or acquired thrombophilia Stroke (< 1 month) Elective arthroplasty Hip, pelvis, or leg fracture Acute spinal cord injury (< 1 month) Prophylaxis Regimen Total Risk Factor Score Risk Level Prophylaxis Regimen 0-1 Low Early ambulation 2 Moderate Order ONE of the following: *Sequential Compression Device (SCD) *Heparin 5000 units SQ BID 3-4 Higher Order ONE of the following medications: *Heparin 5000 units SQ TID *Enoxaparin/Lovenox 40 mg SQ daily (WT < 150 kg, CrCl > 30 mL/min) *Enoxaparin/Lovenox 30 mg SQ daily (WT < 150 kg, CrCl > 10-29 mL/min) *Enoxaparin/Lovenox 30 mg SQ BID (WT < 150 kg, CrCl > 30 mL/min) AND/OR *Sequential Compression Device (SCD) 5 or more Highest Order ONE of the following medications: *Heparin 5000 units SQ TID (Preferred with Epidurals) *Enoxaparin/Lovenox 40 mg SQ daily (WT < 150 kg, CrCl > 30 mL/min) *Enoxaparin/Lovenox 30 mg SQ daily (WT < 150 kg, CrCl > 10-29 mL/min) *Enoxaparin/Lovenox 30 mg SQ BID (WT < 150 kg, CrCl > 30 mL/min) AND *Sequential Compression Device (SCD) Assessment and Plan Assessment and Plan Given that the patient has not been on a statin for a week and had a suspected TIA most recently AND with her initial blood pressure being severely elevated upon admission with these neurological symptoms, the patient therefore presents with a very complicated picture as to what is the cause was the effect. This could entertain the notion that she might of had hypertensive emergency that led to her headache or possibly her headache leading to elevated blood pressures due to pain. TIA with recurrent neurological symptoms to include cephalgia, dizziness, disequilibrium, slurred speech, left facial numbness - Currently symptom free except for headache -Patient with recent full neurological workup done on 05/26/17 -MRI of the brain did not show any acute abnormality -Neurology recommended the patient be admitted for further recommendations will defer further evaluation to them -Continue aspirin -Staring hi dose Lipitor Headache - ? cause of elevated HTN vs caused by elevated HTN vs vascular headache ( migraine) - will let neurology help dictate - giving 1x dose of reglan IV ? Hypertension emergency -Blood pressure improved after given Ativan in the ER -Resume blood pressure medication when cleared by neurology Multiple sclerosis Continue treatment per neurology Heliotropic rash - unclear etiology, will obtain CK and CHRISTEN to start pursuing autoimmune causes ( i.e. dermatomyositis) since this presentation is recurring DVT prevention Subcutaneous heparin This note was transcribed by shawanda Pierre. I, Onel Blandon, personally performed the history, physical exam, and medical decision making; and confirmed the accuracy of information in the transcribed note. Authenticated by Onel Blandon on 06/09/17 at 6:17 PM. All orders entered by Hernan Pierre were at my discretion. Addendum I discussed the case with Dr. Lancaster, does not suspect TIA, recommends against permissive HTN. BP currently stable. Brayden Pierre Jun 09, 2017 17:58 Onel Blandon MD Jun 09, 2017 18:18
[2017-06-09] MEDS ORDERED: METOCLOPRAMIDE HCL 10 MG/2 ML VIAL IV PUSH ONE (18:00)
[2017-06-09] MEDS ORDERED: ATORVASTATIN 40 MG TAB PO ONE (18:00)
[2017-06-09] MEDS ORDERED: ENALAPRILAT 1.25 MG/ML VIAL IV PUSH PRN (18:00)
[2017-06-09] MEDS: PANTOPRAZOLE SOD 20 MG DELAYED RELEASE TAB PO SCH (18:06)
[2017-06-09] MEDS: ATORVASTATIN 40 MG TAB PO SCH (20:54)
[2017-06-09] MEDS: traMADol HCL 50 MG TAB PO PRN (20:55)
[2017-06-09] MEDS: HEPARIN SODIUM - SQ 10,000 UNITS/ML VIAL SQ SCH (20:55)
[2017-06-09] MEDS: FLUTICASONE PROPIONATE 50 MCG/ACT 16 GM NASAL SPRAY EACH NARE SCH (21:00)
[2017-06-09] MEDS: BETAMETHASONE DIPROPIONATE 0.05% OINT 15 GM TUBE TOPICAL SCH (21:00)
--- NOTE | 2017-06-09 22:49 | MB ---
cc: NORBERT NIX M.D. DATE OF CONSULTATION 06/09/2017 HISTORY She is 56-year-old seen in neurological consultation today. She is see the emergency room and she has been admitted to the floor for additional evaluation. The patient admits a history of multiple sclerosis and in the past when she was on which caused side effects. She developed an allergy to Solu-Medrol as she could not breathe with this medication. She was in the hospital recently with some unusual eye sight complaints and some possible ataxia type of symptoms. Dr. Workman saw her for neurological care and she had a number of studies including MRI of brain, MRA head and neck, MR venous and they were essentially unremarkable with some anatomic variation. 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 She went home on aspirin. She was supposed to be statin as well. She has had some increasing headaches in the past two days and she was dizzy and disoriented. She also had some chest tightness. She has been admitted for further evaluation. As I discussed with the emergency room physician Dr. Carroll, an MRI of brain was already obtained and the study was unremarkable except for the demyelination noted on the previous MRI as well. NEUROLOGICAL EXAMINATION The neurological exam was benign at bedside. She was alert, anxious, oriented. Ocular movements full and visual rachel full. There was no significant swelling in the periorbital region like she had recently and she showed me a picture of this event. Speech and language normal. Pupils were about same size, reactive. No pupillary afferent defect. She was able to count fingers well in all visual rachel. She has good strength throughout and she admits that she is very active physically. Reflexes were 01-02+ and plantar responses are flexor. MEDICATIONS Her medications from previous admissions were reviewed. She takes: 1. Ventolin. 2. Tramadol. 3. Fluticasone. 4. Flexeril. 5. Dycyclomine. 6. Albuterol. 7. Silvadene. 8. Triamcinolone topical. 9. Omeprazole. 10. Aspirin. 11. Norvasc. ASSESSMENT This patient presents with some multiple nonspecific symptoms, essentially undetermined cause. Her headaches seem to have a significant symptom at this time and she was found to have significantly elevated blood pressure which I actually think might be the reason for her symptomatology. She came in with a blood pressure of 216/113. I do not have any consistent finding for ischemic cerebrovascular event. There is history of multiple sclerosis with the MRI findings being a possible demyelinating disorder but this is evidently chronic. I would agree with adequate blood pressure management, continue aspirin and statin could be started as well. Depending upon clinical course, we will consider CT angio study but that she had extensive imaging studies just recently. The MRI and MRA studies were done between 05/26 and . I will follow the neurological care. Thank you for asking us to participate in her care. MD ARCENIO Gould/KK /6:36 PM /10:30 PM
[2017-06-10] VITALS (8 sets, daily range): BP systolic 100–154; BP diastolic 72–103; PULSE 58–78; RESP 14–20; TEMP 95.4–98.3; O2SAT 96–99
[2017-06-10] MEDS: traMADol HCL 50 MG TAB PO PRN ×3 (03:50→21:45)
[2017-06-10] MEDS: SODIUM CHLOR 0.9% 1000 ML INJ 1,000 ML IV SCH ×2 (03:54→15:29)
[2017-06-10] MEDS: BETAMETHASONE DIPROPIONATE 0.05% OINT 15 GM TUBE TOPICAL SCH (09:00)
[2017-06-10] MEDS: FLUTICASONE PROPIONATE 50 MCG/ACT 16 GM NASAL SPRAY EACH NARE SCH ×2 (09:00→21:00)
[2017-06-10] MEDS: MOMETASONE FUROATE 0.1% CR 15 GM TUBE TOPICAL SCH (09:00)
[2017-06-10] MEDS: HEPARIN SODIUM - SQ 10,000 UNITS/ML VIAL SQ SCH ×2 (09:08→21:35)
[2017-06-10] MEDS: PANTOPRAZOLE SOD 20 MG DELAYED RELEASE TAB PO SCH (09:08)
[2017-06-10] MEDS: BETAMETHASONE DIPROPIONATE 0.05% CREAM 15 GM TOPICAL SCH ×2 (09:21→21:00)
[2017-06-10] MEDS ORDERED: cloNIDine HCL 0.1 MG TAB PO ONE (12:30)
[2017-06-10] MEDS ORDERED: METOCLOPRAMIDE HCL 10 MG/2 ML VIAL IV PUSH ONE (12:30)
--- NOTE | 2017-06-10 13:48 | HHI.PR ---
Subjective Remarks Pt seen ~ 11 AM this morning. Nursing reports no deterioration since last night. Patient herself says she still has a headache, says that her eyelid swelling is better today. Denies any visual abnormalities this morning . She states that the Reglan did help partially yesterday that was given to her in regards to her headache. States that she tolerated her breakfast well this morning, no current nausea. Patient is very talkative and going back in describing her history with seeing Dr. Workman and undergoing extensive testing in stating that she has multiple issues going on and that her headaches are not simple headaches. Objective Vital Signs Date Time Temp Pulse Resp B/P (MAP) Pulse Ox O2 Delivery O2 Flow Rate FiO2 06/10/17 12:00 98.3 78 14 128/76 (93) 06/10/17 08:35 95.4 66 14 154/103 (120) 06/10/17 08:03 73 06/10/17 04:00 96.8 66 18 152/84 (106) 97 06/10/17 00:00 98.2 72 18 132/89 (103) 96 06/09/17 23:00 72 06/09/17 20:00 96.5 70 18 188/93 (124) 96 06/09/17 16:39 71 16 153/84 (107) 98 Room Air 06/09/17 15:26 75 150/85 (106) 97 I/O 06/09/17 06/09/17 06/09/17 06/10/17 06/10/17 06/10/17 07:00 15:00 23:00 07:00 15:00 23:00 Intake Total 200 ml 1480 ml Balance 200 ml 1480 ml Intake Oral 480 ml IV Total 200 ml 1000 ml # Voids 2 # Bowel Movements 0 Result Diagram: 06/09/17 1256 06/09/17 1256 Objective Remarks Pupils are equal reactive bilaterally bilaterally, no facial droop is noted, tongue protrusion and uvula are in midline, grossly intact 5 out of 5 strength in upper extremities bilaterally, EOMI, able to visually track with each eye Has no impressive heliotropic rash seen today, no periorbital edema noted today unlabored breathing, no acute distress A/P Assessment and Plan No signs of cranial nerve deficits today, after discussion with neurology yesterday, suspect no CVA or TIA etiology in this recent presentation. Hx of TIA - continue aspirin and statin Headache - ? cause of elevated HTN vs caused by elevated HTN vs vascular headache ( migraine) - partial improvement w/ Reglan, patient willing to try Reglan again Hypertension - Improved but not fully controlled blood pressures, will add on Lopressor and clonidine Multiple sclerosis Continue treatment per neurology Heliotropic rash - unclear etiology, CK is within normal limits, and he is pending, possible autoimmune etiology outside of MS DVT prevention Subcutaneous heparin Pt was counseled that her headaches could be multifactorial and that she was not likely having any stroke or TIA, steve with neurology's impression of this being possibly from uncontrolled HTN. Will touch base w/ neurology to see if there's any other reason to keep pt as inpt for further workup or treatment. Pt tolerating po intake well so far. Onel Blandon MD Jun 10, 2017 13:48
[2017-06-10] MEDS: ASPIRIN EC 325 MG TABEC PO SCH (14:13)
[2017-06-10] MEDS: METOPROLOL TARTRATE 50 MG TAB PO SCH ×2 (14:13→21:38)
--- NOTE | 2017-06-10 14:55 | EKG ---
Date Performed: 06/09/2017 Time Performed: 12:53:33 PTAGE: 56 years EKG: Sinus rhythm WITH OCCASIONAL SUPRAVENTRICULAR PREMATURE COMPLEXES LOW QRS VOLTAGE IN PRECORDIAL LEADS BORDERLINE ECG PREVIOUS TRACING : 05/27/2017 13.35 Compared to prior tracing no significant change DOCTOR: Maryjane Sheehan Interpretating Date/Time 06/10/2017 14:51:47
--- NOTE | 2017-06-10 19:00 | HHI.PR ---
Review/Management Diagnosis probable neurologic migraine precipitated by hypertension--improving. Plan start topamax 25 mg bid for migraine prophylaxis If stable, ok from neurology standpoint to discharge home tomorrow on topamax 25 mg bid and follow up in my office next week Diagnosis/Plan: Subjective Subjective Comments Patient reports headache in bilateral parietal area. left sided numbness present but improving Active Medications Current Medications Medications (Trade) Dose Ordered Sig/Michael Route Start Time Stop Time Status Last Admin Sodium Chloride 1,000 ml @ 70 mls/hr [id number] IV 06/09/17 12:45 06/10/17 15:29 (Proair Hfa Inh) 2 puff Q6HR WHILE AWAKE NEB PRN INH 06/09/17 17:45 (Albuterol Neb) 0.63 mg Q4HR NEB PRN NEB 06/09/17 17:45 (Norvasc) 10 mg DAILY PO 06/10/17 09:00 06/10/17 09:07 (Flexeril) 10 mg TID PRN PO 06/09/17 17:45 (Bentyl) 20 mg QID PRN PO 06/09/17 17:45 (Flonase Anatoly Spr) 1 spray BID EACH NARE 06/09/17 21:00 (Ultram) 50 mg Q6H PRN PO 06/09/17 17:45 06/10/17 13:19 (Elocon 0.1% 15 Gm Cr) 1 applic DAILY TOPICAL 06/10/17 09:00 (Protonix) 20 mg DAILY PO 06/09/17 18:00 06/10/17 09:08 (Lipitor) 40 mg HS PO 06/09/17 21:00 06/09/17 20:54 (Heparin Inj) 5,000 units Q12HR SQ 06/09/17 21:00 06/10/17 09:08 (Vasotec Inj) 1.25 mg Q6H PRN IV PUSH 06/09/17 18:00 06/10/17 09:08 (Diprosone 0.05% Cream) APPLY TO AFFECTED AREA BID TOPICAL 06/10/17 09:21 (Lopressor) 50 mg Q12HR PO 06/10/17 12:30 06/10/17 14:13 (Ecotrin Ec) 325 mg DAILY PO 06/10/17 12:30 06/10/17 14:13 Allergies Allergies Coded Allergies Influenza Virus Vaccines (Unverified Allergy, Severe, Anaphylaxis, 06/09/17) Sulfa (Sulfonamide Antibiotics) (Unverified Allergy, Severe, DYSPNEA, BRADYCARDIA, 06/09/17) avocado (Unverified Allergy, Severe, Swelling, 06/09/17) corn (Unverified Allergy, Severe, Shortness of Breath, 06/09/17) erythromycin base (Unverified Allergy, Severe, Swelling, 06/09/17) kiwi (Unverified Allergy, Severe, Swelling, 06/09/17) methylprednisolone (Unverified Allergy, Severe, ANAPHYLAXIS, 06/09/17) shellfish derived (Unverified Allergy, Severe, DYSPNEA, MITRAL VALVE PROLAPSE , 06/09/17) sulfur dioxide (Unverified Allergy, Severe, Dizziness, 06/09/17) wheat (Unverified Allergy, Severe, Swelling, 06/09/17) oyster extract (Unverified Allergy, Intermediate, Anaphylaxis, 06/09/17) Fish Containing Products (Unverified Adverse Reaction, Severe, Swelling, 06/09) iodine (Unverified Adverse Reaction, Severe, Rash, 06/09/17) jaci (Unverified Adverse Reaction, Severe, Swelling, 06/09/17) monosodium glutamate (Unverified Adverse Reaction, Severe, Swelling, 06/09/17) potassium iodide (Unverified Adverse Reaction, Severe, Rash, 06/09/17) povidone-iodine (Unverified Adverse Reaction, Severe, Rash, 06/09/17) sodium iodide (Unverified Adverse Reaction, Severe, Rash, 06/09/17) sodium iodide (Unverified Adverse Reaction, Severe, Rash, 06/09/17) Uncoded Allergies TEQUILA ( Allergy, Intermediate, Shortness of Breath, 09/29/13) ALOE ( Adverse Reaction, Severe, Rash, 09/29/13) PEPPERS ( Adverse Reaction, Severe, STOMACH ISSUES, 09/29/13) POWDER GLOVES ( Adverse Reaction, Severe, Rash, 09/29/13) Exam I&O / VS 06/10/17 06/10/17 06/11/17 15:00 23:00 07:00 Output Total 150 ml Balance -150 ml Output Urine Total 150 ml Vital Signs Date Time Temp Pulse Resp B/P (MAP) Pulse Ox O2 Delivery O2 Flow Rate FiO2 06/10/17 16:00 98.0 77 16 130/88 (102) 98 06/10/17 15:31 73 06/10/17 12:00 98.3 78 14 128/76 (93) 99 06/10/17 08:35 95.4 66 14 154/103 (120) 97 06/10/17 08:03 73 06/10/17 04:00 96.8 66 18 152/84 (106) 97 06/10/17 00:00 98.2 72 18 132/89 (103) 96 06/09/17 23:00 72 06/09/17 20:00 96.5 70 18 188/93 (124) 96 Exam Comments alert, oriented Speech is fluent and comprehension intact CN intact--PERRL, EOM intact. subjective numbness left face but no objective finding MOTOR 5/5 BUE and BLE Objective Radiology Results MRI brain--no acute change. Multiple small areas of increase signal on Flair and T2 in white matter--nonspecific Matthew Workman PhD MD Jun 10, 2017 19:00
[2017-06-10] MEDS: ATORVASTATIN 40 MG TAB PO SCH (21:38)
[2017-06-10] MEDS: TOPIRAMATE 25 MG TAB PO SCH (21:38)
[2017-06-11] VITALS: BP 112/75; PULSE 64; RESP 20; TEMP 96.9; O2SAT 96
[2017-06-11 04:00] VITALS: BP 116/76; PULSE 65; RESP 20; TEMP 97.1; O2SAT 97
[2017-06-11] MEDS: SODIUM CHLOR 0.9% 1000 ML INJ 1,000 ML IV SCH (06:12)
[2017-06-11 08:00] VITALS: BP 103/71; PULSE 57; RESP 20; TEMP 97.1; O2SAT 98
[2017-06-11] MEDS: PANTOPRAZOLE SOD 20 MG DELAYED RELEASE TAB PO SCH (08:24)
[2017-06-11] MEDS: TOPIRAMATE 25 MG TAB PO SCH (08:24)
[2017-06-11] MEDS: traMADol HCL 50 MG TAB PO PRN (08:24)
[2017-06-11] MEDS: METOPROLOL TARTRATE 50 MG TAB PO SCH (08:24)
[2017-06-11] MEDS: ASPIRIN EC 325 MG TABEC PO SCH (08:25)
[2017-06-11] MEDS: HEPARIN SODIUM - SQ 10,000 UNITS/ML VIAL SQ SCH (08:25)
[2017-06-11] MEDS: BETAMETHASONE DIPROPIONATE 0.05% CREAM 15 GM TOPICAL SCH (08:26)
[2017-06-11] MEDS: FLUTICASONE PROPIONATE 50 MCG/ACT 16 GM NASAL SPRAY EACH NARE SCH (08:26)
[2017-06-11] MEDS: MOMETASONE FUROATE 0.1% CR 15 GM TUBE TOPICAL SCH (08:27)
[2017-06-11] MEDS ORDERED: TOPA25TA8 PO (09:07)
[2017-06-11] MEDS ORDERED: METO-309 PO (09:07)
[2017-06-11] MEDS ORDERED: ATOR40TA16 PO (09:07)
--- NOTE | 2017-06-11 09:09 | HHI.DCPOC ---
Discharge Care Plan Diagnosis: (1) Hypertension (2) Multiple sclerosis (3) Neurological symptoms (4) Cephalgia Goals to Promote Your Health * To prevent worsening of your condition and complications * To maintain your health at the optimal level Directions to Meet Your Goals Take your medications as prescribed Follow your dietary instruction Follow activity as directed Keep your appointments as scheduled Take your immunizations and boosters as scheduled If your symptoms worsen call your PCP, if no PCP go to Urgent Care Center or Emergency Room Smoking is Dangerous to Your Health. Avoid second hand smoke Call the 24-hour hour crisis hotline for domestic abuse at Ernie Alonso DO Jun 11, 2017 09:09
--- NOTE | 2017-06-11 09:09 | HHI.DCPOC ---
Discharge Care Plan Diagnosis: (1) Hypertension (2) Multiple sclerosis (3) Neurological symptoms (4) Cephalgia Goals to Promote Your Health * To prevent worsening of your condition and complications * To maintain your health at the optimal level Directions to Meet Your Goals Take your medications as prescribed Follow your dietary instruction Follow activity as directed Keep your appointments as scheduled Take your immunizations and boosters as scheduled If your symptoms worsen call your PCP, if no PCP go to Urgent Care Center or Emergency Room Smoking is Dangerous to Your Health. Avoid second hand smoke Call the 24-hour hour crisis hotline for domestic abuse at Ernie Alonso DO Jun 11, 2017 09:09
--- NOTE | 2017-06-11 09:09 | HHI.DCPOC ---
Discharge Care Plan Diagnosis: (1) Hypertension (2) Multiple sclerosis (3) Neurological symptoms (4) Cephalgia Goals to Promote Your Health * To prevent worsening of your condition and complications * To maintain your health at the optimal level Directions to Meet Your Goals Take your medications as prescribed Follow your dietary instruction Follow activity as directed Keep your appointments as scheduled Take your immunizations and boosters as scheduled If your symptoms worsen call your PCP, if no PCP go to Urgent Care Center or Emergency Room Smoking is Dangerous to Your Health. Avoid second hand smoke Call the 24-hour hour crisis hotline for domestic abuse at Ernie Alonso DO Jun 11, 2017 09:09
--- NOTE | 2017-06-11 09:16 | HHI.PR ---
Subjective Remarks The patient was anxious to go home. She said she felt much better. She wanted to know what medications she was on. She said she will follow up with neurology on Wednesday. Objective Vitals Vital Signs Date Time Temp Pulse Resp B/P (MAP) Pulse Ox O2 Delivery O2 Flow Rate FiO2 06/11/17 04:00 97.1 65 20 116/76 (89) 97 06/11/17 00:00 96.9 64 20 112/75 (87) 96 06/10/17 20:00 96.5 58 20 100/72 (81) 97 06/10/17 20:00 62 06/10/17 16:00 98.0 77 16 130/88 (102) 98 06/10/17 15:31 73 06/10/17 12:00 98.3 78 14 128/76 (93) 99 I/O 06/10/17 06/10/17 06/10/17 06/11/17 06/11/17 06/11/17 07:00 15:00 23:00 07:00 15:00 23:00 Intake Total 1480 ml 2048 ml Output Total 150 ml Balance 1480 ml -150 ml 2048 ml Intake Oral 480 ml 240 ml IV Total 1000 ml 1808 ml Output Urine Total 150 ml # Voids 2 3 # Bowel Movements 0 1 Result Diagram: 06/09/17 1256 06/09/17 1256 Imaging Last Impressions Brain MRI 06/09/17 1321 Signed Impressions: Service Date/Time: Friday, June 09, 2017 14:58 - CONCLUSION: 1. No acute intracranial abnormality. 2. Mild chronic small vessel ischemic change. Torrey Reinoso Jr., MD Head CT 06/09/17 1244 Signed Impressions: Service Date/Time: Friday, June 09, 2017 14:24 - CONCLUSION: Negative noncontrast CT brain. Torrey Matthew MD Objective Remarks GENERAL: Well-nourished, well-developed patient. SKIN: Focused skin assessment warm/dry. HEAD: Normocephalic. EYES: No scleral icterus. No injection or drainage. NECK: Supple, trachea midline. No JVD or lymphadenopathy. CARDIOVASCULAR: Regular rate and rhythm without murmurs, gallops, or rubs. RESPIRATORY: Breath sounds equal bilaterally. No accessory muscle use. GASTROINTESTINAL: Abdomen soft, non-tender, nondistended. MUSCULOSKELETAL: No cyanosis, or edema. BACK: Nontender without obvious deformity. No CVA tenderness. NEURO: Patient's awake and alert. No obvious weakness. PSYCH: Mood and affect appropriate. Medications and IVs Current Medications Medications (Trade) Dose Ordered Sig/Michael Route Start Time Stop Time Status Last Admin Sodium Chloride 1,000 ml @ 70 mls/hr [id number] IV 06/09/17 12:45 06/10/17 15:29 (Proair Hfa Inh) 2 puff Q6HR WHILE AWAKE NEB PRN INH 06/09/17 17:45 (Albuterol Neb) 0.63 mg Q4HR NEB PRN NEB 06/09/17 17:45 (Norvasc) 10 mg DAILY PO 06/10/17 09:00 06/11/17 08:25 (Flexeril) 10 mg TID PRN PO 06/09/17 17:45 (Bentyl) 20 mg QID PRN PO 06/09/17 17:45 (Flonase Anatoly Spr) 1 spray BID EACH NARE 06/09/17 21:00 06/11/17 08:26 (Ultram) 50 mg Q6H PRN PO 06/09/17 17:45 06/11/17 08:24 (Elocon 0.1% 15 Gm Cr) 1 applic DAILY TOPICAL 06/10/17 09:00 (Protonix) 20 mg DAILY PO 06/09/17 18:00 06/11/17 08:24 (Lipitor) 40 mg HS PO 06/09/17 21:00 06/10/17 21:38 (Heparin Inj) 5,000 units Q12HR SQ 06/09/17 21:00 06/11/17 08:25 (Vasotec Inj) 1.25 mg Q6H PRN IV PUSH 06/09/17 18:00 06/10/17 09:08 (Diprosone 0.05% Cream) APPLY TO AFFECTED AREA BID TOPICAL 06/10/17 09:21 06/11/17 08:26 (Lopressor) 50 mg Q12HR PO 06/10/17 12:30 06/11/17 08:24 (Ecotrin Ec) 325 mg DAILY PO 06/10/17 12:30 06/11/17 08:25 (Topamax) 25 mg Q12HR PO 06/10/17 21:00 06/11/17 08:24 A/P Problem List: (1) Neurological symptoms ICD Code: R29.90 - Unspecified symptoms and signs involving the nervous system (2) Cephalgia ICD Code: R51 - Headache (3) History of TIAs ICD Code: Z86.73 - Personal history of transient ischemic attack (TIA), and cerebral infarction without residual deficits Assessment and Plan Headache No signs of cranial nerve deficits. Neuro consult appreciated. Suspect no CVA or TIA etiology in this recent presentation. MRI showing no acute insults. Suspect multifactorial headaches w/ HTN and possible migraine variant. Has a Hx of TIA. - continue aspirin and statin. - blood pressure control. - continue Topamax per neurology. Hypertension Blood pressure currently normal. - continue amlodipine. Lopressor added. Multiple sclerosis Stable. - Continue treatment per neurology. Heliotropic rash Unclear etiology. CK is within normal limits. - outpt follow-up. DVT prevention Subcutaneous heparin Discharge Planning D/c home with neurology follow-up Ernie Alonso DO Jun 11, 2017 09:16
[2017-06-11] MEDS ORDERED: COMMODE BEDSIDE1 MI1 (09:56)
== END 2017-06-11 09:51 | disposition home or self-care (01) ==
LOC: PHED 12:29 → PHEDA 16:29 → PH3B 19:48
PROVIDERS: ADMIT Hospitalist; ATTEND Hospitalist
DX: R47.81 Slurred speech (principal); R53.1 Weakness; Z86.73 Personal history of transient ischemic attack (TIA), and cerebral infarction without residual deficits; G35 Multiple sclerosis; F41.9 Anxiety disorder, unspecified; I34.1 Nonrheumatic mitral (valve) prolapse; E78.00 Pure hypercholesterolemia, unspecified; J44.9 Chronic obstructive pulmonary disease, unspecified; K21.9 Gastro-esophageal reflux disease without esophagitis; I10 Essential (primary) hypertension; Z79.899 Other long term (current) drug therapy; R51 Headache; R11.0 Nausea; R42 Dizziness and giddiness; R07.89 Other chest pain; R20.0 Anesthesia of skin; H54.7 Unspecified visual loss; Z87.891 Personal history of nicotine dependence; R21 Rash and other nonspecific skin eruption; R41.0 Disorientation, unspecified; R94.31 Abnormal electrocardiogram [ECG] [EKG]
CPT/HCPCS: 70450; 70551; 80053; 82550; 84443; 85025; 85610; 85730; 86038; 93005; 96361; 96372; 96374; 96375; 99285; G0378; J1644; J2060; J2765; J7030